=== PATIENT | male | born 1970 | race American Indian/Alaskan Native ===

== ENCOUNTER 2017-07-19 01:22 | Observation (INO) | payer SELFPAY ==
[2017-07-19] MEDS ORDERED: Sodium Chloride 0.9% 1,000 ML IV STA ×2 (01:58→04:42)
[2017-07-19 02:38] LABS: HEMOGLOBIN 13.6 g/dL (12.0-18.0); MEAN CELL VOLUME 96.2 fl (80.0-94.0); MEAN CORPUSCULAR HEMOGLOBIN 31.9 pg (27.0-31.0); MEAN CORPUSCULAR HGB CONC 33.2 g/dL (33.0-37.0); RBC 4.25 Mil/uL (4.40-5.90); RED CELL DISTRIBUTION WIDTH 14.9 % (11.5-14.5); WHITE BLOOD COUNT 9.5 K/uL (4.8-10.8)
--- NOTE | 2017-07-19 02:38 | ED PDOC ---
HPI: Abdomen Time Seen by Provider: 07/19/17 01:43 Chief Complaint (Nursing): Abdominal Pain Chief Complaint (Provider): Abdominal Pain History Per: Patient History/Exam Limitations: no limitations Onset/Duration Of Symptoms: Days (5 days ago) Current Symptoms Are (Timing): Still Present Additional Complaint(s): 47 yo male with no past medical history, presents to this ED complaining of nausea, vomiting, epigastric abdominal pain that radiates up to his throat, onset of 5 days ago. Patient reports, "It feels like i want to throw up my intestines", and he also states that he has been having trouble sleeping, and unable to eat a full meal because of this. He denies any alcohol or drug use. Past Medical History Reviewed: Historical Data, Nursing Documentation, Vital Signs Vital Signs: Last Vital Signs Temp 98.8 F 07/19/17 16:42 Pulse 82 07/19/17 16:42 Resp 20 07/19/17 16:42 BP 125/75 07/19/17 16:42 Pulse Ox 99 07/19/17 16:42 - Medical History PMH: Anxiety - Surgical History Surgical History: No Surg Hx - Family History Family History: States: Unknown Family Hx - Social History Current smoker - smoking cessation education provided: No Alcohol: None Drugs: Denies - Immunization History Hx Tetanus Toxoid Vaccination: No Hx Influenza Vaccination: No Hx Pneumococcal Vaccination: No - Home Medications Home Medications: Ambulatory Orders Medication Instructions Recorded No Known Home Med 07/19/17 - Allergies Allergies/Adverse Reactions: Allergies Allergy/AdvReac Type Severity Reaction Status Date / Time No Known Allergies Allergy Verified 12/08/16 08:37 Review of Systems ROS Statement: Except As Marked, All Systems Reviewed And Found Negative Constitutional: Positive for: Other (trouble eating and sleeping) ENT: Positive for: Throat Pain Gastrointestinal: Positive for: Nausea, Vomiting, Abdominal Pain (eppigastric) Physical Exam - Reviewed Nursing Documentation Reviewed: Yes Vital Signs Reviewed: Yes - Physical Exam Appears: Positive for: Well, Non-toxic, No Acute Distress Head Exam: Positive for: ATRAUMATIC, NORMAL INSPECTION, NORMOCEPHALIC Skin: Positive for: Normal Color, Warm, DRY Eye Exam: Positive for: EOMI, Normal appearance, PERRL ENT: Positive for: Normal ENT Inspection Neck: Positive for: Normal, Painless ROM Cardiovascular/Chest: Positive for: Regular Rate, Rhythm, Tachycardia. Negative for: Murmur Respiratory: Positive for: Normal Breath Sounds. Negative for: Respiratory Distress Gastrointestinal/Abdominal: Positive for: Soft, Tenderness (epigastric region). Negative for: Guarding, Rebound Back: Positive for: Normal Inspection Extremity: Positive for: Normal ROM. Negative for: Pedal Edema, Deformity Neurologic/Psych: Positive for: Alert, Oriented. Negative for: Motor/Sensory Deficits - Laboratory Results Result Diagrams: 07/19/17 02:18 07/19/17 15:41 - ECG O2 Sat by Pulse Oximetry: 97 (RA) Pulse Ox Interpretation: Normal Medical Decision Making Medical Decision Making: Time: --01:58 Impression: --patient with no past medical history presents with probable gastritis Plan: --labs --Drug Screen, urine -lipase --Liver profile --Pepcid 20mg IVP --IV Fluids --Zofran inj 4mg IVP - Reassess --02:25 patient is tachycardic probably because of dehydration. Will hydrate, check labs, give meds, and reevaluate. --0700 Patient is starting to feel better but CO2 is still significantly low. Will admit for IVF. Case discussed with Dr. Osborne who accepts admission, requesting CT A/P. Patient stable and improving upon admission. Scribe Attestation: Documented by Ihsan Jorgensen acting as a scribe for Fabian Mao MD. Provider Attestation: All medical record entries made by the Scribe were at my direction and personally dictated by me. I have reviewed the chart and agree that the record accurately reflects my personal performance of the history, physical exam, medical decision making, and the department course for this patient. I have also personally directed, reviewed, and agree with the discharge instructions and disposition. Disposition - Clinical Impression Clinical Impression: Nausea & vomiting, Hypocapnia - Disposition Disposition Time: 07:00 Condition: IMPROVED
[2017-07-19 02:46] LABS: ALB/GLOB RATIO 1.2 (1.0-2.1); ALBUMIN 5.1 g/dL (3.5-5.0); ALT/SGPT 72 U/L (21-72); AST/SGOT 134 U/L (17-59); BILIRUBIN,DIRECT 0.8 mg/ml (0.0-0.4); BLOOD UREA NITROGEN 9 mg/dl (9-20); CALCIUM 9.9 mg/dL (8.4-10.2); GFR AFRICAN-AMERICAN > 60; GFR NON-AFRICAN AMERICAN > 60; LIPASE 69 U/L (23-300)
[2017-07-19 05:03] LABS: BARBITURATES, UR NEGATIVE (NEGATIVE); BENZODIAZEPINES, UR NEGATIVE (NEGATIVE); OPIATES, UR NEGATIVE (NEGATIVE); PHENCYCLIDINE, UR NEGATIVE (NEGATIVE)
[2017-07-19 07:04] LABS: BLOOD UREA NITROGEN 8 mg/dl (9-20); GFR AFRICAN-AMERICAN > 60; GFR NON-AFRICAN AMERICAN > 60
[2017-07-19] MEDS ORDERED: Iohexol 240 (50 ml) PO ONE (07:22)
[2017-07-19] MEDS ORDERED: Iohexol 240 (50 ml) ONE (07:50)
[2017-07-19 08:16] LABS: VENOUS BLOOD GAS BASE EXCESS -9.2 mmol/L (0.0-2.0); VENOUS BLOOD GAS PCO2 29 mmHg (40-60); VENOUS BLOOD GAS PO2 46 mm/Hg (30-55); VENOUS BLOOD PH 7.33 (7.32-7.43)
--- NOTE | 2017-07-19 08:25 | CP.PCM.HP ---
History of Present Illness - History of Present Illness History of Present Illness: Chief Complaint : Nausea and Vomiting HPI: 47 y/o gent with no significant PMH except for receurent hx of N/V , came in bec of abdominal pain, [id number], N/V for the past 5-6 days. Patient states that for the past 10 years , he has been having recurrent history of abdominal pain and vomiting and he has had several ED visits because of this however he never had any GI work up. 6 days ago he had 3 drinks of Cognac and after this he started having abdominal pain - more epigastric radiating to the chest and throat. This was followed by several episodes of vomiting - about 6-7 x per day. He vomited everything that he ate and then followed by vomiting of watery fluid. he was unable to hold anything down for the past 6 days. he denies diarrhea, had no BM the past 4 days since he has been unable to eat anything. He also states that when he has the N/V episodes, his whole body is weak and he feels very dry. Present on Admission - Present on Admission Any Indicators Present on Admission: No Review of Systems - Review of Systems All systems: reviewed and no additional remarkable complaints except - Constitutional Constitutional: Weakness - EENT Eyes: absent: Blurred Vision, Change in Vision Ears: absent: Decreased Hearing, Ear Discharge Nose/Mouth/Throat: Dry Mouth. absent: Epistaxis, Nasal Congestion, Nasal Discharge - Cardiovascular Cardiovascular: absent: Chest Pain, Orthopnea, Palpitations, Paroxysmal Nocturnal Dyspnea - Respiratory Respiratory: absent: Cough, Dyspnea, Hemoptysis - Gastrointestinal Gastrointestinal: Abdominal Pain, Nausea, Vomiting - Genitourinary Genitourinary: absent: Change in Urinary Stream, Difficulty Urinating, Dysuria - Musculoskeletal Musculoskeletal: Muscle Weakness - Integumentary Integumentary: Dry Skin. absent: Rash, Sores - Neurological Neurological: Weakness. absent: Confusion, Focal Weakness - Psychiatric Psychiatric: absent: Anxiety, Confusion, Depression, Paranoia, Suicidal Ideation - Endocrine Endocrine: absent: Polydipsia, Polyphagia, Polyuria - Hematologic/Lymphatic Hematologic: absent: Easy Bleeding, Easy Bruising Past Patient History - Infectious Disease Hx of Infectious Diseases: None - Tetanus Immunizations Tetanus Immunization: Unknown - Past Medical History & Family History Past Medical History?: No Past Family History: Reviewed and not pertinent Pertinent Family History: Mother in her sleep at age 65y ??? Father is healthy - Past Social History Smoking Status: Never Smoked Chewing Tobacco Use: No Cigar Use: No Alcohol: Other (drinks 3 glasses of cognac 3x per week) Drugs: Denies Home Situation {Lives}: Alone Domestic Violence: Negative - CARDIAC Hx Cardiac Disorders: No - PULMONARY Hx Respiratory Disorders: No - NEUROLOGICAL Hx Neurological Disorder: No - HEENT Hx HEENT Problems: No - RENAL Hx Chronic Kidney Disease: No - ENDOCRINE/METABOLIC Hx Endocrine Disorders: No - HEMATOLOGICAL/ONCOLOGICAL Hx Blood Disorders: No Hx Blood Transfusions: No - INTEGUMENTARY Hx Dermatological Problems: No - MUSCULOSKELETAL/RHEUMATOLOGICAL Hx Musculoskeletal Disorders: No - GASTROINTESTINAL Hx Nausea: Yes Hx Vomiting: Yes Other/Comment: CT scan of chest done last yewar showed Esophagitis - GENITOURINARY/GYNECOLOGICAL Hx Genitourinary Disorders: No - PSYCHIATRIC Hx Anxiety: Yes Hx Substance Use: No - SURGICAL HISTORY Hx Surgeries: No - ANESTHESIA Hx Anesthesia: No Meds Allergies/Adverse Reactions: Allergies Allergy/AdvReac Type Severity Reaction Status Date / Time No Known Allergies Allergy Verified 12/08/16 08:37 Physical Exam - Constitutional Appears: No Acute Distress - Head Exam Head Exam: NORMAL INSPECTION, NORMOCEPHALIC - Eye Exam Eye Exam: EOMI, Normal appearance, PERRL Pupil Exam: NORMAL ACCOMODATION - ENT Exam ENT Exam: Mucous Membranes Dry, Normal External Ear Exam - Neck Exam Neck exam: Positive for: Full Rom. Negative for: Meningismus - Respiratory Exam Respiratory Exam: NORMAL BREATHING PATTERN. absent: Respiratory Distress - Cardiovascular Exam Cardiovascular Exam: REGULAR RHYTHM, +S1, +S2 - GI/Abdominal Exam GI & Abdominal Exam: Hernia (umbilical), Normal Bowel Sounds, Soft, Tenderness - Extremities Exam Extremities exam: Positive for: full ROM, normal capillary refill, pedal pulses present. Negative for: calf tenderness, pedal edema - Back Exam Back exam: FULL ROM. absent: CVA tenderness (L), CVA tenderness (R) - Neurological Exam Neurological exam: Alert, CN II-XII Intact, Oriented x3, Reflexes Normal - Psychiatric Exam Psychiatric exam: Normal Affect, Normal Mood - Skin Skin Exam: Dry, Normal Color, Warm Results - Vital Signs Recent Vital Signs: Last Vital Signs Temp 99.7 F H 07/19/17 07:38 Pulse 98 H 07/19/17 07:38 Resp 18 07/19/17 07:38 BP 131/67 07/19/17 07:38 Pulse Ox 99 07/19/17 07:38 - Labs Result Diagrams: 07/19/17 02:18 07/19/17 06:25 Labs: Laboratory Results - last 24 hr 07/19/17 07/19/17 07/19/17 02:18 02:18 04:41 WBC 9.5 RBC 4.25 L Hgb 13.6 Hct 40.9 MCV 96.2 H MCH 31.9 H MCHC 33.2 RDW 14.9 H Plt Count 342 pO2 VBG pH VBG pCO2 VBG HCO3 VBG Total CO2 VBG O2 Sat (Calc) VBG Base Excess VBG Potassium Glucose Lactate FiO2 Sodium 144 Potassium 5.7 H Chloride 98 Carbon Dioxide 9 L* Anion Gap 43 H BUN 9 Creatinine 1.2 Est GFR ( Amer) > 60 Est GFR (Non-Af Amer) > 60 Random Glucose 88 Calcium 9.9 Total Bilirubin 1.2 Direct Bilirubin 0.8 H AST 134 H ALT 72 Alkaline Phosphatase 115 Total Protein 9.2 H Albumin 5.1 H Globulin 4.1 H Albumin/Globulin Ratio 1.2 Lipase 69 Venous Blood Potassium Urine Opiates Screen Negative Urine Methadone Screen Negative Ur Barbiturates Screen Negative Ur Phencyclidine Scrn Negative Ur Amphetamines Screen Negative U Benzodiazepines Scrn Negative U Oth Cocaine Metabols Negative U Cannabinoids Screen Negative 07/19/17 07/19/17 06:25 08:11 WBC RBC Hgb Hct MCV MCH MCHC RDW Plt Count pO2 46 VBG pH 7.33 VBG pCO2 29 L VBG HCO3 17.2 VBG Total CO2 16.2 L VBG O2 Sat (Calc) 84.9 H VBG Base Excess -9.2 L VBG Potassium 4.9 Glucose 80 Lactate 1.6 FiO2 21.0 Sodium 142 135.0 Potassium 5.0 Chloride 105 103.0 Carbon Dioxide 11 L* D Anion Gap 31 H BUN 8 L Creatinine 1.0 Est GFR ( Amer) > 60 Est GFR (Non-Af Amer) > 60 Random Glucose 77 Calcium 8.0 L Total Bilirubin Direct Bilirubin AST ALT Alkaline Phosphatase Total Protein Albumin Globulin Albumin/Globulin Ratio Lipase Venous Blood Potassium 4.9 Urine Opiates Screen Urine Methadone Screen Ur Barbiturates Screen Ur Phencyclidine Scrn Ur Amphetamines Screen U Benzodiazepines Scrn U Oth Cocaine Metabols U Cannabinoids Screen - EKG Data EKG Interpreted by: Myself EKG shows normal: Sinus rhythm Rate: Tachycardia Assessment & Plan (1) Metabolic acidosis Status: Acute (2) Abdominal pain Status: Acute (3) Nausea & vomiting Status: Acute (4) Hyperkalemia Status: Acute (5) DVT prophylaxis Status: Acute - Assessment and Plan (Free Text) Assessment: 47 y/o gent with hx of recurrent abd pain , nausea and vomiting, came bec of 5- 6 days hx of vomiting and weakness. Found to be acidotic and with hyperkalemia. 1. Abd Pain, Nausea and Vomiting with Metabolic Acidosis - Pt has been having theses sxs on and off x [address] of chest done last year showed Esophagitis changes - will keep pt in the hospital for IVF hydration -start IVF NS bolus - start Sodium bicarb drip -start IV PPI - CT of the abd and Pelvis with contrast - pt would need EGD as outpt - counseled pt regarding need to d/c ETOH - check Salicylate, Acetaminophen level, Lactic acid 2. Hyperkalemia, resolved with hydration 3. DVT proph SCD, will start _Lovenox Decision To Admit - Pt Status Changed To: Hospital Disposition Of: Observation - . Bed Request Type: Telemetry Admitting Physician: July Osborne
[2017-07-19 08:26] LABS: ACETAMINOPHEN < 10.0 ug/ml (10.0-30.0); SALICYLATE < 1.0 mg/dl
[2017-07-19 09:00] LABS: SQUAMOUS EPITHIAL < 1 /hpf (0-5); URINE BILIRUBIN NEGATIVE (NEGATIVE); URINE BLOOD NEGATIVE (NEGATIVE); URINE CLARITY CLEAR (Clear); URINE COLOR YELLOW (YELLOW); URINE GLUCOSE (UA) NEG (Normal); URINE LEUKOCYTE ESTERASE NEG Leu/uL (Negative); URINE PROTEIN NEGATIVE (NEGATIVE); URINE UROBILINOGEN 0.2-1.0 mg/dL (0.2-1.0)
[2017-07-19] MEDS ORDERED: Sodium Chloride 0.9% 1,000 ML IV SCH (09:00)
[2017-07-19 09:12] LABS: ABG ALLEN TEST YES; ARTERIAL BLOOD GAS HCO3 18.4 mmol/L (21-28); ARTERIAL BLOOD GAS HEMOGLOBIN 11.6 g/dL (11.7-17.4); ARTERIAL BLOOD GAS O2 CAPACITY 15.7 mL/dL (16-24); ARTERIAL BLOOD GAS O2 CONTENT 15.8 ML/dL (15-23); ARTERIAL BLOOD GAS O2 SAT 100.4 % (95-98); ARTERIAL BLOOD GAS PCO2 27 mm/Hg (35-45); ARTERIAL BLOOD GAS PH 7.37 (7.35-7.45); ARTERIAL BLOOD GAS PO2 97 mm/Hg (80-100); ARTERIAL BLOOD GAS TCO2 16.4 mmol/L (22-28)
[2017-07-19] MEDS: [UNRECOGNIZED DRUG - OTHER] IV SCH ×2 (09:25→18:29)
[2017-07-19] MEDS: DEXTROSE IV SCH ×2 (09:25→18:29)
[2017-07-19] MEDS: SODIUM BICARBONATE IV SCH ×2 (09:25→18:29)
[2017-07-19] MEDS ORDERED: Iohexol 300 100 ML IJ ONE (13:12)
--- NOTE | 2017-07-19 14:35 | CT ---
PROCEDURE: CT Abdomen and Pelvis with contrast HISTORY: epig pain, vomiting COMPARISON: None. TECHNIQUE: Contrast dose: 95 cc Omnipaque 300 Radiation dose: Total exam DLP = 382.93 mGy-cm. This CT exam was performed using one or more of the following dose reduction techniques: Automated exposure control, adjustment of the mA and/or kV according to patient size, and/or use of iterative reconstruction technique. FINDINGS: LOWER THORAX: Unremarkable. LIVER: Normal size and contour. No mass. Diffusely diminished attenuation consistent with fatty infiltration. No biliary ductal dilatation. GALLBLADDER AND BILE DUCTS: Unremarkable. PANCREAS: No focal mass. Mild pancreatic ductal dilatation. Peripancreatic fluid/ edema consistent with acute pancreatitis. This fluid surrounds the 2nd and 3rd portions of the duodenum as well. The fluid extends to the level of the pancreatic tail. SPLEEN: Unremarkable. ADRENALS: Unremarkable. No mass. KIDNEYS AND URETERS: Unremarkable. No hydronephrosis. No solid mass. VASCULATURE: Unremarkable. No aortic aneurysm. BOWEL: Unremarkable. No obstruction. No gross mural thickening. APPENDIX: Normal appendix. PERITONEUM: Umbilical hernia containing 1 wall of a loop of sigmoid colon, a Doran hernia. Mesenteric fat is also herniated into this umbilical hernia. No bowel obstruction. No other abnormal bowel loops. LYMPH NODES: Unremarkable. No enlarged lymph nodes. BLADDER: Diffuse mural thickening. However, there is underdistention of the bladder and this may be artifactual. Please correlate with urinalysis for possible UTI. REPRODUCTIVE: Normal prostate BONES: No acute fracture. OTHER FINDINGS: None. IMPRESSION: Findings consistent with acute pancreatitis. Mild pancreatic ductal dilatation. No pancreatic mass. Umbilical Doran hernia noted. Fatty infiltration of the liver. Thickened bladder wall raising suspicion of cystitis. Please correlate.
--- NOTE | 2017-07-19 15:56 | CP.PCM.CON ---
<Dayana Mosley - Last Filed: 07/19/17 16:29> History of Present Illness - History of Present Illness History of Present Illness: GI Fellow PGY 4 Consult Note This is a 47 yM with no significant pmhx presenting for abdominal pain, N/V for the past 5-6 days. Pt reports that for the past few years he has been having recurrent abdominal pain similar to what he has now and multiple hospital admissions at different facilities but does not recall diagnosis of acute pancreatitis. No prior EGD or colonoscopy. His pain started Sunday after drinking 3 drinks of Cognac and after this he started having epigastric abdominal pain, sharp, radiating to the chest and throat and RUQ/back. This was followed by several episodes of vomiting about 6-7 x per day. He denies diarrhea, fevers, chills, rectal bleeding. ROS: A 12pt ROS was negative except as above PmHx: As stated in HPI PsHx: Denies SHx: positive etoh divine three times a week 3 drinks for many years, neg tobacco, opioid use FHx: no hx of colon cancer Past Patient History - Infectious Disease Hx of Infectious Diseases: None - Tetanus Immunizations Tetanus Immunization: Unknown - Past Medical History & Family History Past Medical History?: No Past Family History: Reviewed and not pertinent - Past Social History Smoking Status: Never Smoked Chewing Tobacco Use: No Cigar Use: No Alcohol: Other (drinks 3 glasses of cognac 3x per week) Drugs: Denies Home Situation {Lives}: Alone Domestic Violence: Negative - CARDIAC Hx Cardiac Disorders: No - PULMONARY Hx Respiratory Disorders: No - NEUROLOGICAL Hx Neurological Disorder: No - HEENT Hx HEENT Problems: No - RENAL Hx Chronic Kidney Disease: No - ENDOCRINE/METABOLIC Hx Endocrine Disorders: No - HEMATOLOGICAL/ONCOLOGICAL Hx Blood Disorders: No Hx Blood Transfusions: No - INTEGUMENTARY Hx Dermatological Problems: No - MUSCULOSKELETAL/RHEUMATOLOGICAL Hx Musculoskeletal Disorders: No - GASTROINTESTINAL Hx Nausea: Yes Hx Vomiting: Yes Other/Comment: CT scan of chest done last yewar showed Esophagitis - GENITOURINARY/GYNECOLOGICAL Hx Genitourinary Disorders: No - PSYCHIATRIC Hx Anxiety: Yes Hx Substance Use: No - SURGICAL HISTORY Hx Surgeries: No - ANESTHESIA Hx Anesthesia: No Meds Allergies/Adverse Reactions: Allergies Allergy/AdvReac Type Severity Reaction Status Date / Time No Known Allergies Allergy Verified 09/01/17 08:37 - Medications Medications: Current Medications Sodium Bicarbonate 50 meq/ (Dextrose/Sodium Chloride) 1,050 mls @ 125 mls/hr IV .Q8H24M [facility] Stop: 07/19/17 23:44 Last Admin: 07/19/17 09:25 Dose: 125 mls/hr Morphine Sulfate (Morphine) 2 mg IVP Q6 PRN PRN Reason: Pain, severe (8-10) Last Admin: 07/19/17 09:24 Dose: 2 mg Ondansetron HCl (Zofran Odt) 4 mg PO Q8H PRN PRN Reason: Nausea/Vomiting Pantoprazole Sodium (Protonix Inj) 40 mg IVP Q12 [facility] Physical Exam - Constitutional Appears: Non-toxic, No Acute Distress - Head Exam Head Exam: ATRAUMATIC, NORMAL INSPECTION, NORMOCEPHALIC - Eye Exam Eye Exam: EOMI, Normal appearance, PERRL Pupil Exam: PERRL - ENT Exam ENT Exam: Mucous Membranes Moist, Normal Exam - Neck Exam Neck exam: Positive for: Normal Inspection - Respiratory Exam Respiratory Exam: Clear to Auscultation Bilateral, NORMAL BREATHING PATTERN - Cardiovascular Exam Cardiovascular Exam: REGULAR RHYTHM, +S1, +S2 - GI/Abdominal Exam GI & Abdominal Exam: Normal Bowel Sounds, Soft, Tenderness. absent: Distended, Firm, Organomegaly, Rigid - Rectal Exam Rectal Exam: Deferred - Extremities Exam Extremities exam: Positive for: full ROM, normal inspection - Back Exam Back exam: NORMAL INSPECTION - Neurological Exam Neurological exam: Alert, Oriented x3 - Psychiatric Exam Psychiatric exam: Normal Affect, Normal Mood - Skin Skin Exam: Dry, Intact, Normal Color, Warm Results - Vital Signs Recent Vital Signs: Last Vital Signs Temp 99.7 F H 07/19/17 09:16 Pulse 87 07/19/17 09:36 Resp 20 07/19/17 10:11 BP 123/78 07/19/17 09:36 Pulse Ox 99 07/19/17 09:36 - Labs Result Diagrams: 07/19/17 02:18 07/19/17 06:25 Labs: Laboratory Results - last 24 hr 07/19/17 07/19/17 07/19/17 02:18 02:18 04:41 WBC 9.5 RBC 4.25 L Hgb 13.6 Hct 40.9 MCV 96.2 H MCH 31.9 H MCHC 33.2 RDW 14.9 H Plt Count 342 pCO2 pO2 HCO3 ABG pH ABG Total CO2 ABG O2 Saturation ABG O2 Content ABG Base Excess ABG Hemoglobin ABG Carboxyhemoglobin POC ABG HHb (Measured) ABG Methemoglobin ABG O2 Capacity Rajendra Test VBG pH VBG pCO2 VBG HCO3 VBG Total CO2 VBG O2 Sat (Calc) VBG Base Excess VBG Potassium A-a O2 Difference Hgb O2 Saturation Glucose Lactate FiO2 Sodium 144 Potassium 5.7 H Chloride 98 Carbon Dioxide 9 L* Anion Gap 43 H BUN 9 Creatinine 1.2 Est GFR ( Amer) > 60 Est GFR (Non-Af Amer) > 60 Random Glucose 88 Lactic Acid Calcium 9.9 Total Bilirubin 1.2 Direct Bilirubin 0.8 H AST 134 H ALT 72 Alkaline Phosphatase 115 Total Protein 9.2 H Albumin 5.1 H Globulin 4.1 H Albumin/Globulin Ratio 1.2 Lipase 69 Venous Blood Potassium Urine Color Urine Clarity Urine pH Ur Specific [place] Urine Protein Urine Glucose (UA) Urine Ketones Urine Blood Urine Nitrate Urine Bilirubin Urine Urobilinogen Ur Leukocyte Esterase Urine RBC (Auto) Urine Microscopic WBC Ur Squamous Epith Cells Salicylates Urine Opiates Screen Negative Urine Methadone Screen Negative Acetaminophen Ur Barbiturates Screen Negative Ur Phencyclidine Scrn Negative Ur Amphetamines Screen Negative U Benzodiazepines Scrn Negative U Oth Cocaine Metabols Negative U Cannabinoids Screen Negative 07/19/17 07/19/17 07/19/17 06:25 08:01 08:01 WBC RBC Hgb Hct MCV MCH MCHC RDW Plt Count pCO2 pO2 HCO3 ABG pH ABG Total CO2 ABG O2 Saturation ABG O2 Content ABG Base Excess ABG Hemoglobin ABG Carboxyhemoglobin POC ABG HHb (Measured) ABG Methemoglobin ABG O2 Capacity Rajendra Test VBG pH VBG pCO2 VBG HCO3 VBG Total CO2 VBG O2 Sat (Calc) VBG Base Excess VBG Potassium A-a O2 Difference Hgb O2 Saturation Glucose Lactate FiO2 Sodium 142 Potassium 5.0 Chloride 105 Carbon Dioxide 11 L* D Anion Gap 31 H BUN 8 L Creatinine 1.0 Est GFR ( Amer) > 60 Est GFR (Non-Af Amer) > 60 Random Glucose 77 Lactic Acid 1.3 Calcium 8.0 L Total Bilirubin Direct Bilirubin AST ALT Alkaline Phosphatase Total Protein Albumin Globulin Albumin/Globulin Ratio Lipase Venous Blood Potassium Urine Color Urine Clarity Urine pH Ur Specific [place] Urine Protein Urine Glucose (UA) Urine Ketones Urine Blood Urine Nitrate Urine Bilirubin Urine Urobilinogen Ur Leukocyte Esterase Urine RBC (Auto) Urine Microscopic WBC Ur Squamous Epith Cells Salicylates < 1.0 Urine Opiates Screen Urine Methadone Screen Acetaminophen < 10.0 L Ur Barbiturates Screen Ur Phencyclidine Scrn Ur Amphetamines Screen U Benzodiazepines Scrn U Oth Cocaine Metabols U Cannabinoids Screen 07/19/17 07/19/17 07/19/17 08:11 08:35 08:52 WBC RBC Hgb Hct MCV MCH MCHC RDW Plt Count pCO2 27 L pO2 46 97 HCO3 18.4 L ABG pH 7.37 ABG Total CO2 16.4 L ABG O2 Saturation 100.4 H ABG O2 Content 15.8 ABG Base Excess -8.3 L ABG Hemoglobin 11.6 L ABG Carboxyhemoglobin 2.2 H POC ABG HHb (Measured) -0.4 L ABG Methemoglobin 1.9 ABG O2 Capacity 15.7 L Rajendra Test Yes VBG pH 7.33 VBG pCO2 29 L VBG HCO3 17.2 VBG Total CO2 16.2 L VBG O2 Sat (Calc) 84.9 H VBG Base Excess -9.2 L VBG Potassium 4.9 A-a O2 Difference 19.0 Hgb O2 Saturation 96.4 Glucose 80 Lactate 1.6 FiO2 21.0 21.0 Sodium 135.0 Potassium Chloride 103.0 Carbon Dioxide Anion Gap BUN Creatinine Est GFR ( Amer) Est GFR (Non-Af Amer) Random Glucose Lactic Acid Calcium Total Bilirubin Direct Bilirubin AST ALT Alkaline Phosphatase Total Protein Albumin Globulin Albumin/Globulin Ratio Lipase Venous Blood Potassium 4.9 Urine Color Yellow Urine Clarity Clear Urine pH 5.0 Ur Specific [place] 1.016 Urine Protein Negative Urine Glucose (UA) Neg Urine Ketones 80 Urine Blood Negative Urine Nitrate Negative Urine Bilirubin Negative Urine Urobilinogen 0.2-1.0 Ur Leukocyte Esterase Neg Urine RBC (Auto) 1 Urine Microscopic WBC < 1 Ur Squamous Epith Cells < 1 Salicylates Urine Opiates Screen Urine Methadone Screen Acetaminophen Ur Barbiturates Screen Ur Phencyclidine Scrn Ur Amphetamines Screen U Benzodiazepines Scrn U Oth Cocaine Metabols U Cannabinoids Screen Assessment & Plan - Assessment and Plan (Free Text) Assessment: This is a 47yM presenting with complaints of epigastric abdominal pain. 1. Acute pancreatitis likely alcohol induced Plan: -Continue supportive care with pain control and anti-emetics -Pt with abdominal pain consistent with pancreatitis and CT imaging reviewed with peripancreatic edema and fat stranding, lipase is not elevated 3xupper limit of normal -Acute pancreatits from alcohol abuse and chronic alcohol use -Abdominal US ordered to r/o gallstones -Will check triglycerides levels -No indication to trend lipase levels -Monitor CBC and CMP to trend BUN/HCT -Recommend Aggressive IVF hydration with LR@250cc/hr -NPO, if pain improves can start diet tomorrow -Alcohol cessation counseling provided to pt in setting of acute pancreatitis -No plan for endoscopic evaluation at this time, will need outpt follow up -Will continue to follow closely <Adrián Dougherty - Last Filed: 07/19/17 20:47> Meds - Medications Medications: Current Medications Lactated Ringer's (Lactated Ringer's) 1,000 mls @ 250 mls/hr IV .Q4H [facility] Morphine Sulfate (Morphine) 2 mg IVP Q6 PRN PRN Reason: Pain, severe (8-10) Last Admin: 07/19/17 15:55 Dose: 2 mg Ondansetron HCl (Zofran Odt) 4 mg PO Q8H PRN PRN Reason: Nausea/Vomiting Pantoprazole Sodium (Protonix Inj) 40 mg IVP Q12 [facility] Results - Vital Signs Recent Vital Signs: Last Vital Signs Temp 98.8 F 07/19/17 16:42 Pulse 82 07/19/17 16:42 Resp 20 07/19/17 16:42 BP 125/75 07/19/17 16:42 Pulse Ox 99 07/19/17 16:42 - Labs Result Diagrams: 07/19/17 02:18 07/19/17 15:41 Labs: Laboratory Results - last 24 hr 07/19/17 07/19/17 07/19/17 02:18 02:18 04:41 WBC 9.5 RBC 4.25 L Hgb 13.6 Hct 40.9 MCV 96.2 H MCH 31.9 H MCHC 33.2 RDW 14.9 H Plt Count 342 pCO2 pO2 HCO3 ABG pH ABG Total CO2 ABG O2 Saturation ABG O2 Content ABG Base Excess ABG Hemoglobin ABG Carboxyhemoglobin POC ABG HHb (Measured) ABG Methemoglobin ABG O2 Capacity Rajendra Test VBG pH VBG pCO2 VBG HCO3 VBG Total CO2 VBG O2 Sat (Calc) VBG Base Excess VBG Potassium A-a O2 Difference Hgb O2 Saturation Glucose Lactate FiO2 Sodium 144 Potassium 5.7 H Chloride 98 Carbon Dioxide 9 L* Anion Gap 43 H BUN 9 Creatinine 1.2 Est GFR ( Amer) > 60 Est GFR (Non-Af Amer) > 60 Random Glucose 88 Lactic Acid Calcium 9.9 Total Bilirubin 1.2 Direct Bilirubin 0.8 H AST 134 H ALT 72 Alkaline Phosphatase 115 Total Protein 9.2 H Albumin 5.1 H Globulin 4.1 H Albumin/Globulin Ratio 1.2 Lipase 69 Venous Blood Potassium Urine Color Urine Clarity Urine pH Ur Specific [place] Urine Protein Urine Glucose (UA) Urine Ketones Urine Blood Urine Nitrate Urine Bilirubin Urine Urobilinogen Ur Leukocyte Esterase Urine RBC (Auto) Urine Microscopic WBC Ur Squamous Epith Cells Salicylates Urine Opiates Screen Negative Urine Methadone Screen Negative Acetaminophen Ur Barbiturates Screen Negative Ur Phencyclidine Scrn Negative Ur Amphetamines Screen Negative U Benzodiazepines Scrn Negative U Oth Cocaine Metabols Negative U Cannabinoids Screen Negative 07/19/17 07/19/17 07/19/17 06:25 08:01 08:01 WBC RBC Hgb Hct MCV MCH MCHC RDW Plt Count pCO2 pO2 HCO3 ABG pH ABG Total CO2 ABG O2 Saturation ABG O2 Content ABG Base Excess ABG Hemoglobin ABG Carboxyhemoglobin POC ABG HHb (Measured) ABG Methemoglobin ABG O2 Capacity Rajendra Test VBG pH VBG pCO2 VBG HCO3 VBG Total CO2 VBG O2 Sat (Calc) VBG Base Excess VBG Potassium A-a O2 Difference Hgb O2 Saturation Glucose Lactate FiO2 Sodium 142 Potassium 5.0 Chloride 105 Carbon Dioxide 11 L* D Anion Gap 31 H BUN 8 L Creatinine 1.0 Est GFR ( Amer) > 60 Est GFR (Non-Af Amer) > 60 Random Glucose 77 Lactic Acid 1.3 Calcium 8.0 L Total Bilirubin Direct Bilirubin AST ALT Alkaline Phosphatase Total Protein Albumin Globulin Albumin/Globulin Ratio Lipase Venous Blood Potassium Urine Color Urine Clarity Urine pH Ur Specific [place] Urine Protein Urine Glucose (UA) Urine Ketones Urine Blood Urine Nitrate Urine Bilirubin Urine Urobilinogen Ur Leukocyte Esterase Urine RBC (Auto) Urine Microscopic WBC Ur Squamous Epith Cells Salicylates < 1.0 Urine Opiates Screen Urine Methadone Screen Acetaminophen < 10.0 L Ur Barbiturates Screen Ur Phencyclidine Scrn Ur Amphetamines Screen U Benzodiazepines Scrn U Oth Cocaine Metabols U Cannabinoids Screen 07/19/17 07/19/17 07/19/17 08:11 08:35 08:52 WBC RBC Hgb Hct MCV MCH MCHC RDW Plt Count pCO2 27 L pO2 46 97 HCO3 18.4 L ABG pH 7.37 ABG Total CO2 16.4 L ABG O2 Saturation 100.4 H ABG O2 Content 15.8 ABG Base Excess -8.3 L ABG Hemoglobin 11.6 L ABG Carboxyhemoglobin 2.2 H POC ABG HHb (Measured) -0.4 L ABG Methemoglobin 1.9 ABG O2 Capacity 15.7 L Rajendra Test Yes VBG pH 7.33 VBG pCO2 29 L VBG HCO3 17.2 VBG Total CO2 16.2 L VBG O2 Sat (Calc) 84.9 H VBG Base Excess -9.2 L VBG Potassium 4.9 A-a O2 Difference 19.0 Hgb O2 Saturation 96.4 Glucose 80 Lactate 1.6 FiO2 21.0 21.0 Sodium 135.0 Potassium Chloride 103.0 Carbon Dioxide Anion Gap BUN Creatinine Est GFR ( Amer) Est GFR (Non-Af Amer) Random Glucose Lactic Acid Calcium Total Bilirubin Direct Bilirubin AST ALT Alkaline Phosphatase Total Protein Albumin Globulin Albumin/Globulin Ratio Lipase Venous Blood Potassium 4.9 Urine Color Yellow Urine Clarity Clear Urine pH 5.0 Ur Specific [place] 1.016 Urine Protein Negative Urine Glucose (UA) Neg Urine Ketones 80 Urine Blood Negative Urine Nitrate Negative Urine Bilirubin Negative Urine Urobilinogen 0.2-1.0 Ur Leukocyte Esterase Neg Urine RBC (Auto) 1 Urine Microscopic WBC < 1 Ur Squamous Epith Cells < 1 Salicylates Urine Opiates Screen Urine Methadone Screen Acetaminophen Ur Barbiturates Screen Ur Phencyclidine Scrn Ur Amphetamines Screen U Benzodiazepines Scrn U Oth Cocaine Metabols U Cannabinoids Screen 07/19/17 15:41 WBC RBC Hgb Hct MCV MCH MCHC RDW Plt Count pCO2 pO2 HCO3 ABG pH ABG Total CO2 ABG O2 Saturation ABG O2 Content ABG Base Excess ABG Hemoglobin ABG Carboxyhemoglobin POC ABG HHb (Measured) ABG Methemoglobin ABG O2 Capacity Rajendra Test VBG pH VBG pCO2 VBG HCO3 VBG Total CO2 VBG O2 Sat (Calc) VBG Base Excess VBG Potassium A-a O2 Difference Hgb O2 Saturation Glucose Lactate FiO2 Sodium 141 Potassium 4.0 Chloride 98 Carbon Dioxide 23 Anion Gap 24 H BUN 7 L Creatinine 1.0 Est GFR ( Amer) > 60 Est GFR (Non-Af Amer) > 60 Random Glucose 108 Lactic Acid Calcium 8.6 Total Bilirubin 1.5 H Direct Bilirubin AST 118 H ALT 63 Alkaline Phosphatase 86 Total Protein 7.8 Albumin 4.2 Globulin 3.6 Albumin/Globulin Ratio 1.2 Lipase Venous Blood Potassium Urine Color Urine Clarity Urine pH Ur Specific [place] Urine Protein Urine Glucose (UA) Urine Ketones Urine Blood Urine Nitrate Urine Bilirubin Urine Urobilinogen Ur Leukocyte Esterase Urine RBC (Auto) Urine Microscopic WBC Ur Squamous Epith Cells Salicylates Urine Opiates Screen Urine Methadone Screen Acetaminophen Ur Barbiturates Screen Ur Phencyclidine Scrn Ur Amphetamines Screen U Benzodiazepines Scrn U Oth Cocaine Metabols U Cannabinoids Screen Assessment & Plan - Assessment and Plan (Free Text) Plan: Patient seen and evaluated by me and discussed with fellow. Agree with above plan.
[2017-07-19] MEDS ORDERED: Lactated Ringer's 1,000 ML IV SCH (17:15)
[2017-07-19 17:42] LABS: ALB/GLOB RATIO 1.2 (1.0-2.1); ALBUMIN 4.2 g/dL (3.5-5.0); ALT/SGPT 63 U/L (21-72); AST/SGOT 118 U/L (17-59); BLOOD UREA NITROGEN 7 mg/dl (9-20); CALCIUM 8.6 mg/dL (8.4-10.2); GFR AFRICAN-AMERICAN > 60; GFR NON-AFRICAN AMERICAN > 60
--- NOTE | 2017-07-19 21:43 | US ---
EXAM: US Abdomen Complete CLINICAL HISTORY: 47 years old, male; Signs and symptoms; Vomiting; Additional info: R/O gallstones TECHNIQUE: Real-time ultrasound of the abdomen (complete) with image documentation. COMPARISON: No relevant prior studies available. FINDINGS: Liver: Measuring approximately 18 cm. Increased echogenicity. Gallbladder: No acute abnormality as visualized. No gallstones. Common bile duct: No dilation. Pancreas: Pancreatic duct visualized. Kidneys: No acute abnormality as visualized. Measured at 10.8 cm bilaterally. No hydronephrosis. Spleen: No acute abnormality as visualized. acute abnormality as visualized. Limited evaluation. IMPRESSION: No evidence of cholelithiasis/cholecystitis. Liver is slightly prominent in size with increased echogenicity likely secondary to fatty infiltration. Please note acute pancreatitis noted on CT is not clearly appreciated on ultrasound.
[2017-07-19] MEDS: Lactated Ringer's 1,000 ML IV SCH ×2 (22:43→23:22)
[2017-07-20] MEDS: Lactated Ringer's 1,000 ML IV SCH ×6 (02:35→17:34)
[2017-07-20 06:54] LABS: BASO % 0.3 % (0.0-2.0); EOS # 0.1 K/uL (0.0-0.7); EOS % 1.2 % (0.0-4.0); HEMOGLOBIN 12.8 g/dL (12.0-18.0); LYMPH # 1.2 K/uL (1.0-4.3); LYMPH % 23.1 % (20.0-40.0); MEAN CELL VOLUME 95.4 fl (80.0-94.0); MEAN CORPUSCULAR HEMOGLOBIN 31.3 pg (27.0-31.0); MEAN CORPUSCULAR HGB CONC 32.8 g/dL (33.0-37.0); MEAN PLATELET VOLUME 7.2 fl (7.2-11.7); MONO # 0.2 K/uL (0.0-0.8); MONO % 4.8 % (0.0-10.0); NEUT # 3.6 K/uL (1.8-7.0); NEUT % 70.6 % (50.0-75.0); NRBC % 0.2 % (0.0-0.0); RBC 4.08 Mil/uL (4.40-5.90); RED CELL DISTRIBUTION WIDTH 14.3 % (11.5-14.5); WHITE BLOOD COUNT 5.1 K/uL (4.8-10.8)
[2017-07-20 07:15] LABS: LDL CHOLESTEROL 139 mg/dL (0-129)
[2017-07-20 07:28] LABS: ALB/GLOB RATIO 1.1 (1.0-2.1); ALBUMIN 3.8 g/dL (3.5-5.0); ALT/SGPT 57 U/L (21-72); AMYLASE 425 U/L (30-110); AST/SGOT 116 U/L (17-59); BLOOD UREA NITROGEN 5 mg/dl (9-20); CALCIUM 8.9 mg/dL (8.4-10.2); GFR AFRICAN-AMERICAN > 60; GFR NON-AFRICAN AMERICAN > 60; HDL CHOLESTEROL 74 MG/DL (30-70)
[2017-07-20 08:02] VITALS: O2SAT 98
--- NOTE | 2017-07-20 10:06 | CP.PCM.PN ---
<Dayana Mosley - Last Filed: 07/20/17 10:03> Subjective - Date & Time of Evaluation Date of Evaluation: 07/20/17 Time of Evaluation: 08:00 - Subjective Subjective: GI Fellow PGY4 Progress Note Pt seen and evaluated at bedside, abdominal pain is a little better since admission. Pt willing to try clear liquids. No fevers, chills, nausea or vomiting. ROS: A 12pt ROS was negative except as above. Objective - Vital Signs/Intake and Output Vital Signs (last 24 hours): Temp Pulse Resp BP Pulse Ox 98.9 F 73 19 135/85 98 07/20/17 08:01 07/20/17 08:01 07/20/17 08:01 07/20/17 08:01 07/20/17 08:01 - Medications Medications: Current Medications Lactated Ringer's (Lactated Ringer's) 1,000 mls @ 250 mls/hr IV .Q4H [facility] Last Admin: 07/20/17 06:35 Dose: Not Given Morphine Sulfate (Morphine) 2 mg IVP Q6 PRN PRN Reason: Pain, severe (8-10) Last Admin: 07/19/17 15:55 Dose: 2 mg Ondansetron HCl (Zofran Odt) 4 mg PO Q8H PRN PRN Reason: Nausea/Vomiting Pantoprazole Sodium (Protonix Inj) 40 mg IVP Q12 [facility] Last Admin: 07/20/17 08:54 Dose: 40 mg - Labs Labs: 07/20/17 06:18 07/20/17 06:18 - Constitutional Appears: Non-toxic, No Acute Distress - Head Exam Head Exam: ATRAUMATIC, NORMAL INSPECTION, NORMOCEPHALIC - Eye Exam Eye Exam: EOMI, Normal appearance, PERRL Pupil Exam: PERRL - ENT Exam ENT Exam: Mucous Membranes Moist - Neck Exam Neck Exam: Full ROM - Respiratory Exam Respiratory Exam: Clear to Ausculation Bilateral, NORMAL BREATHING PATTERN - Cardiovascular Exam Cardiovascular Exam: REGULAR RHYTHM, RRR, +S1, +S2 - GI/Abdominal Exam GI & Abdominal Exam: Soft, Tenderness, Normal Bowel Sounds. absent: Distended, Firm, Guarding, Organomegaly - Rectal Exam Rectal Exam: Deferred - Extremities Exam Extremities Exam: Full ROM, Normal Inspection - Back Exam Back Exam: NORMAL INSPECTION - Neurological Exam Neurological Exam: Alert, Awake, Oriented x3 - Psychiatric Exam Psychiatric exam: Normal Affect, Normal Mood - Skin Skin Exam: Dry, Intact, Normal Color, Warm Assessment and Plan - Assessment and Plan (Free Text) Assessment: This is a 47yM presenting with complaints of epigastric abdominal pain. 1. Acute pancreatitis likely alcohol induced Plan: -Continue supportive care with pain control and anti-emetics -Pt with abdominal pain consistent with pancreatitis and CT imaging reviewed with peripancreatic edema and fat stranding, lipase is not elevated 3xupper limit of normal -Acute pancreatits from alcohol abuse and chronic alcohol use -Abdominal US negative for gallstones -Triglycerides levels wnl -No indication to trend lipase levels -Monitor CBC and CMP to trend BUN/HCT -Continue IVF hydration with LR@200cc/hr -Advance to clear liquid diet, advance as tolerated to low fat diet -Alcohol cessation counseling provided to pt in setting of acute pancreatitis -No plan for endoscopic evaluation at this time, will need outpt follow up -Will continue to follow closely <Adrián Dougherty - Last Filed: 07/20/17 14:46> Objective - Vital Signs/Intake and Output Vital Signs (last 24 hours): Temp Pulse Resp BP Pulse Ox 98.9 F 73 19 135/85 98 07/20/17 08:01 07/20/17 08:01 07/20/17 08:01 07/20/17 08:01 07/20/17 08:01 - Medications Medications: Current Medications Lactated Ringer's (Lactated Ringer's) 1,000 mls @ 250 mls/hr IV .Q4H [facility] Last Admin: 07/20/17 10:31 Dose: 250 mls/hr Morphine Sulfate (Morphine) 2 mg IVP Q6 PRN PRN Reason: Pain, severe (8-10) Last Admin: 07/19/17 15:55 Dose: 2 mg Ondansetron HCl (Zofran Odt) 4 mg PO Q8H PRN PRN Reason: Nausea/Vomiting Pantoprazole Sodium (Protonix Inj) 40 mg IVP Q12 [facility] Last Admin: 07/20/17 08:54 Dose: 40 mg - Labs Labs: 07/20/17 06:18 07/20/17 06:18 Assessment and Plan - Assessment and Plan (Free Text) Plan: Agree with above.If patient continues to improve may start small amounts low fat solids
[2017-07-20 16:37] VITALS: BP 115/71; PULSE 86; RESP 18; TEMP 99
--- NOTE | 2017-07-20 19:01 | CP.PCM.DIS ---
Provider - Provider Date of Admission: 07/19/17 07:22 Attending physician: July Osborne MD Consults: GI : DR Dougherty Time Spent in preparation of Discharge (in minutes): 40 Diagnosis - Discharge Diagnosis (1) Acute alcoholic pancreatitis Status: Acute (2) Metabolic acidosis Status: Acute (3) Abdominal pain Status: Acute (4) Nausea & vomiting Status: Acute (5) Hyperkalemia Status: Acute (6) DVT prophylaxis Status: Acute Hospital Course - Lab Results Lab Results: Most Recent Lab Values WBC 5.1 K/uL (4.8-10.8) 07/20/17 06:18 RBC 4.08 Mil/uL (4.40-5.90) L 07/20/17 06:18 Hgb 12.8 g/dL (12.0-18.0) 07/20/17 06:18 Hct 39.0 % (35.0-51.0) 07/20/17 06:18 MCV 95.4 fl (80.0-94.0) H 07/20/17 06:18 MCH 31.3 pg (27.0-31.0) H 07/20/17 06:18 MCHC 32.8 g/dL (33.0-37.0) L 07/20/17 06:18 RDW 14.3 % (11.5-14.5) 07/20/17 06:18 Plt Count 232 K/uL (130-400) D 07/20/17 06:18 MPV 7.2 fl (7.2-11.7) 07/20/17 06:18 Neut % (Auto) 70.6 % (50.0-75.0) 07/20/17 06:18 Lymph % (Auto) 23.1 % (20.0-40.0) 07/20/17 06:18 [place] % (Auto) 4.8 % (0.0-10.0) 07/20/17 06:18 Eos % (Auto) 1.2 % (0.0-4.0) 07/20/17 06:18 Baso % (Auto) 0.3 % (0.0-2.0) 07/20/17 06:18 Neut # (Auto) 3.6 K/uL (1.8-7.0) 07/20/17 06:18 Lymph # (Auto) 1.2 K/uL (1.0-4.3) 07/20/17 06:18 [place] # (Auto) 0.2 K/uL (0.0-0.8) 07/20/17 06:18 Eos # (Auto) 0.1 K/uL (0.0-0.7) 07/20/17 06:18 Baso # (Auto) 0.0 K/uL (0.0-0.2) 07/20/17 06:18 pCO2 27 mm/Hg (35-45) L 07/19/17 08:52 pO2 97 mm/Hg (80-100) 07/19/17 08:52 HCO3 18.4 mmol/L (21-28) L 07/19/17 08:52 ABG pH 7.37 (7.35-7.45) 07/19/17 08:52 ABG Total CO2 16.4 mmol/L (22-28) L 07/19/17 08:52 ABG O2 Saturation 100.4 % (95-98) H 07/19/17 08:52 ABG O2 Content 15.8 ML/dL (15-23) 07/19/17 08:52 ABG Base Excess -8.3 mmol/L (-2.0-3.0) L 07/19/17 08:52 ABG Hemoglobin 11.6 g/dL (11.7-17.4) L 07/19/17 08:52 ABG Carboxyhemoglobin 2.2 % (0.5-1.5) H 07/19/17 08:52 POC ABG HHb (Measured) -0.4 % (0.0-5.0) L 07/19/17 08:52 ABG Methemoglobin 1.9 % (0.0-3.0) 07/19/17 08:52 ABG O2 Capacity 15.7 mL/dL (16-24) L 07/19/17 08:52 Rajendra Test Yes 07/19/17 08:52 VBG pH 7.33 (7.32-7.43) 07/19/17 08:11 VBG pCO2 29 mmHg (40-60) L 07/19/17 08:11 VBG HCO3 17.2 mmol/L 07/19/17 08:11 VBG Total CO2 16.2 mmol/L (22-28) L 07/19/17 08:11 VBG O2 Sat (Calc) 84.9 % (40-65) H 07/19/17 08:11 VBG Base Excess -9.2 mmol/L (0.0-2.0) L 07/19/17 08:11 VBG Potassium 4.9 mmol/L (3.6-5.2) 07/19/17 08:11 A-a O2 Difference 19.0 mm/Hg 07/19/17 08:52 Hgb O2 Saturation 96.4 % (95.0-98.0) 07/19/17 08:52 Sodium 135.0 mmol/L (132-148) 07/19/17 08:11 Chloride 103.0 mmol/L (98-107) 07/19/17 08:11 Glucose 80 mg/dL (75-110) 07/19/17 08:11 Lactate 1.6 mmol/L (0.7-2.1) 07/19/17 08:11 FiO2 21.0 % 07/19/17 08:52 Sodium 138 mmol/l (132-148) 07/20/17 06:18 Potassium 3.8 MMOL/L (3.6-5.0) 07/20/17 06:18 Chloride 97 mmol/L (98-107) L 07/20/17 06:18 Carbon Dioxide 24 mmol/L (22-30) 07/20/17 06:18 Anion Gap 21 (10-20) H 07/20/17 06:18 BUN 5 mg/dl (9-20) L 07/20/17 06:18 Creatinine 0.9 mg/dl (0.8-1.5) 07/20/17 06:18 Est GFR ( Amer) > 60 07/20/17 06:18 Est GFR (Non-Af Amer) > 60 07/20/17 06:18 Random Glucose 86 mg/dL (75-110) 07/20/17 06:18 Lactic Acid 1.3 MMOL/L (0.7-2.1) 07/19/17 08:01 Calcium 8.9 mg/dL (8.4-10.2) 07/20/17 06:18 Total Bilirubin 1.3 mg/dl (0.2-1.3) 07/20/17 06:18 Direct Bilirubin 0.8 mg/ml (0.0-0.4) H 07/19/17 02:18 AST 116 U/L (17-59) H 07/20/17 06:18 ALT 57 U/L (21-72) 07/20/17 06:18 Alkaline Phosphatase 79 U/L (38-126) 07/20/17 06:18 Total Protein 7.2 G/DL (6.3-8.2) 07/20/17 06:18 Albumin 3.8 g/dL (3.5-5.0) 07/20/17 06:18 Globulin 3.4 gm/dL (2.2-3.9) 07/20/17 06:18 Albumin/Globulin Ratio 1.1 (1.0-2.1) 07/20/17 06:18 Triglycerides 89 mg/DL (0-149) 07/20/17 06:18 Cholesterol 245 mg/dL (0-199) H 07/20/17 06:18 LDL Cholesterol Direct 139 mg/dL (0-129) H 07/20/17 06:18 HDL Cholesterol 74 MG/DL (30-70) H 07/20/17 06:18 Amylase 425 U/L (30-110) H 07/20/17 06:18 Lipase 69 U/L (23-300) 07/19/17 02:18 Venous Blood Potassium 4.9 mmol/L (3.6-5.2) 07/19/17 08:11 Urine Color Yellow (YELLOW) 07/19/17 08:35 Urine Clarity Clear (Clear) 07/19/17 08:35 Urine pH 5.0 (5.0-8.0) 07/19/17 08:35 Ur Specific [place] 1.016 (1.003-1.030) 07/19/17 08:35 Urine Protein Negative mg/dL (NEGATIVE) 07/19/17 08:35 Urine Glucose (UA) Neg mg/dL (Normal) 07/19/17 08:35 Urine Ketones 80 mg/dL (NEGATIVE) 07/19/17 08:35 Urine Blood Negative (NEGATIVE) 07/19/17 08:35 Urine Nitrate Negative (NEGATIVE) 07/19/17 08:35 Urine Bilirubin Negative (NEGATIVE) 07/19/17 08:35 Urine Urobilinogen 0.2-1.0 mg/dL (0.2-1.0) 07/19/17 08:35 Ur Leukocyte Esterase Neg Papo/uL (Negative) 07/19/17 08:35 Urine RBC (Auto) 1 /hpf (0-3) 07/19/17 08:35 Urine Microscopic WBC < 1 /hpf (0-5) 07/19/17 08:35 Ur Squamous Epith Cells < 1 /hpf (0-5) 07/19/17 08:35 Salicylates < 1.0 mg/dl 07/19/17 08:01 Urine Opiates Screen Negative (NEGATIVE) 07/19/17 04:41 Urine Methadone Screen Negative (NEGATIVE) 07/19/17 04:41 Acetaminophen < 10.0 ug/ml (10.0-30.0) L 07/19/17 08:01 Ur Barbiturates Screen Negative (NEGATIVE) 07/19/17 04:41 Ur Phencyclidine Scrn Negative (NEGATIVE) 07/19/17 04:41 Ur Amphetamines Screen Negative (NEGATIVE) 07/19/17 04:41 U Benzodiazepines Scrn Negative (NEGATIVE) 07/19/17 04:41 U Oth Cocaine Metabols Negative (NEGATIVE) 07/19/17 04:41 U Cannabinoids Screen Negative (NEGATIVE) 07/19/17 04:41 - Hospital Course Hospital Course: 47 y/o gent with hx of recurrent abd pain , nausea and vomiting, came bec of 5- 6 days hx of abd pain with vomiting and weakness. Found to be acidotic and with hyperkalemia. Pt drinks ETOH 3 glasses of Cognac per day 3 times per week. 1. Abd Pain, Nausea and Vomiting with Metabolic Acidosis sec Acute Alcohol Pancreatitis - Pt has been having theses sxs on and off x [address] of chest done last year showed Esophagitis changes CT of the abdomen with contrast showed : Pancreatitis changes - GI consulted- rec IVF hydration- Pt was kept NPO - started on aggressive IVF hydration - started Sodium bicarb drip- acidosis resolved -IV PPI given - counseled pt regarding need to d/c ETOH - Salicylate, Acetaminophen level, Lactic acid: normal - Diet slowly upgraded ,- he tolerated Liquid and then [place] low fat diet. - Pt's pain resolved ( he has not had any pain med since yesterday ) - vomiting resolved , he tolerated Po diet - Discussed with Dr Dougherty - pt could be d/c if his pain resolves and tolerates diet. - d/c pt home , d/c ETOH, - GI ff up as outpt 2. Hyperkalemia, resolved with hydration 3. DVT proph SCD, Lovenox Discharge Exam - Head Exam Head Exam: ATRAUMATIC, NORMAL INSPECTION, NORMOCEPHALIC - Eye Exam Eye Exam: EOMI, Normal appearance, PERRL Pupil Exam: NORMAL ACCOMODATION - ENT Exam ENT Exam: Mucous Membranes Moist, Normal External Ear Exam - Neck Exam Neck exam: Full Rom - Respiratory Exam Respiratory Exam: NORMAL BREATHING PATTERN. absent: Respiratory Distress - Cardiovascular Exam Cardiovascular Exam: REGULAR RHYTHM, +S1, +S2 - GI/Abdominal Exam GI & Abdominal Exam: Normal Bowel Sounds, Soft. absent: Tenderness Additional comments: umbilical hernia - Extremities Exam Extremities exam: full ROM, normal capillary refill, normal inspection, pedal pulses present - Back Exam Back exam: FULL ROM. absent: CVA tenderness (L), CVA tenderness (R), paraspinal tenderness, vertebral tenderness - Neurological Exam Neurological exam: Alert, CN II-XII Intact, Normal Gait, Oriented x3, Reflexes Normal - Psychiatric Exam Psychiatric exam: Normal Affect, Normal Mood - Skin Skin Exam: Dry, Normal Color, Warm Discharge Plan - Discharge Medications Prescriptions: Pantoprazole Sodium [Protonix] 40 mg PO DAILY #30 ect traMADol [Ultram] 50 mg PO TID PRN #15 tab PRN Reason: Pain, Moderate (4-7) - Follow Up Plan Condition: GOOD Disposition: HOME/ ROUTINE Instructions: Acute Abdomen (Belly Pain), Adult (DC), Nausea and Vomiting, Adult (DC) Additional Instructions: follow up with your primary MD 7-10 days [place] low fat diet appt with Dr Dougherty in 1 wk Referrals: [facility] [Outside] Adrián Dougherty MD [Staff Provider] -
== END 2017-07-20 19:50 | disposition home or self-care (01) ==
LOC: H.ER 01:22 → H.ERHOLD 07:22 → H.MEDSURG1 09:56
PROVIDERS: ADMIT Internal Medicine; ATTEND Internal Medicine
DX: K85.20 Alcohol induced acute pancreatitis without necrosis or infection (principal); E87.2 Acidosis; E87.5 Hyperkalemia; F10.10 Alcohol abuse, uncomplicated; K29.70 Gastritis, unspecified, without bleeding; F41.9 Anxiety disorder, unspecified
CPT/HCPCS: 36415; 74177; 76700; 80053; 80061; 80076; 81003; 82150; 82803; 83605; 83690; 85025; 85027; 87338; 96374; 96375; 96376; 99284; C9113; G0378; G0480; J2270; J2405; J7040; J7120; Q9966; Q9967

== ENCOUNTER 2018-07-04 20:12 | Inpatient (IN) | payer MEDICAID ==
[2018-07-04 21:34] LABS: BASO % 0.3 % (0.0-2.0); EOS # 0.1 K/uL (0.0-0.7); EOS % 2.1 % (0.0-4.0); HEMOGLOBIN 14.1 g/dL (12.0-18.0); LYMPH # 1.2 K/uL (1.0-4.3); MEAN CELL VOLUME 90.5 fl (80.0-94.0); MEAN CORPUSCULAR HEMOGLOBIN 29.9 pg (27.0-31.0); MEAN CORPUSCULAR HGB CONC 33.1 g/dL (33.0-37.0); MEAN PLATELET VOLUME 7.2 fl (7.2-11.7); MONO # 0.4 K/uL (0.0-0.8); MONO % 6.8 % (0.0-10.0); NEUT # 4.3 K/uL (1.8-7.0); NEUT % 70.8 % (50.0-75.0); NRBC % 0.1 % (0.0-0.0); RBC 4.72 Mil/uL (4.40-5.90); RED CELL DISTRIBUTION WIDTH 15.3 % (11.5-14.5); WHITE BLOOD COUNT 6.1 K/uL (4.8-10.8)
[2018-07-04 21:38] LABS: VENOUS BLOOD GAS PCO2 57 mmHg (40-60); VENOUS BLOOD GAS PO2 19 mm/Hg (30-55); VENOUS BLOOD PH 7.37 (7.32-7.43)
[2018-07-04 21:44] LABS: ALB/GLOB RATIO 1.2 (1.0-2.1); ALBUMIN 4.5 g/dL (3.5-5.0); ALT/SGPT 57 U/L (21-72); AST/SGOT 121 U/L (17-59); BLOOD UREA NITROGEN 3 mg/dl (9-20); GFR NON-AFRICAN AMERICAN > 60
--- NOTE | 2018-07-04 21:44 | ED PDOC ---
HPI: Chest Pain Time Seen by Provider: 07/04/18 20:18 Chief Complaint (Nursing): Chest Pain Chief Complaint (Provider): Chest pain and epigastric pain History Per: Patient History/Exam Limitations: no limitations Onset/Duration Of Symptoms: Days (x4) Current Symptoms Are (Timing): Still Present Additional Complaint(s): 48 y/o male, with no past medical history, presents to the ER complaining of having epigastric pain and chest pain radiating to the back since Sunday. He states he has been using Antacid and Prilosec without relief. He reports he has been using a herbal supplement with gin 3-4 times a week. He indicates that when he has gin, he has "a fifth" of gin. Denies vomiting but reports having occasional nausea. He reports having normal bowel movements. PMD: none provided Past Medical History Reviewed: Historical Data, Nursing Documentation, Vital Signs Vital Signs: Last Vital Signs Temp 98.9 F 07/04/18 20:18 Pulse 84 07/04/18 20:18 Resp 16 07/04/18 20:18 BP 143/94 H 07/04/18 20:18 Pulse Ox 99 07/04/18 20:18 - Medical History PMH: Anxiety Denies: HIV, Chronic Kidney Disease - Surgical History Surgical History: No Surg Hx - Family History Family History: States: Unknown Family Hx - Immunization History Hx Tetanus Toxoid Vaccination: No Hx Influenza Vaccination: No Hx Pneumococcal Vaccination: No - Home Medications Home Medications: Ambulatory Orders Medication Instructions Recorded Mag Hydrox/Aluminum Hyd/Simeth [Eq 2 tbs PO PRN PRN 07/05/18 Liquid Antacid Susp] Omeprazole Magnesium [Prilosec Otc] 20 mg PRN PRN 07/05/18 - Allergies Allergies/Adverse Reactions: Allergies Allergy/AdvReac Type Severity Reaction Status Date / Time No Known Allergies Allergy Verified 07/04/18 20:18 Review of Systems ROS Statement: Except As Marked, All Systems Reviewed And Found Negative Cardiovascular: Positive for: Chest Pain Gastrointestinal: Positive for: Nausea, Abdominal Pain (radiating to the back), Other (Normal bowel movement). Negative for: Vomiting Physical Exam - Reviewed Nursing Documentation Reviewed: Yes Vital Signs Reviewed: Yes - Physical Exam Appears: Positive for: No Acute Distress Head Exam: Positive for: ATRAUMATIC, NORMOCEPHALIC Skin: Positive for: Normal Color, Warm, Dry Eye Exam: Positive for: Normal appearance Neck: Positive for: Normal, Painless ROM Cardiovascular/Chest: Positive for: Regular Rate, Rhythm Respiratory: Positive for: Normal Breath Sounds. Negative for: Wheezing, Respiratory Distress Gastrointestinal/Abdominal: Positive for: Tenderness (tenderness to palpation in epigastric region), Distended, Hernia (umbilical) Extremity: Positive for: Normal ROM Neurological/Psych: Positive for: Awake, Alert, Normal Tone, Oriented - Laboratory Results Result Diagrams: 07/04/18 21:25 07/04/18 21:25 Lab Results: pO2 19 mm/Hg (30-55) L 07/04/18 21:32 VBG pH 7.37 (7.32-7.43) 07/04/18 21:32 VBG pCO2 57 mmHg (40-60) 07/04/18 21:32 VBG HCO3 27.7 mmol/L 07/04/18 21:32 VBG Total CO2 34.7 mmol/L (22-28) H 07/04/18 21:32 VBG O2 Sat (Calc) 31.5 % (40-65) L 07/04/18 21:32 VBG Base Excess 6.0 mmol/L (0.0-2.0) H 07/04/18 21:32 VBG Potassium 4.2 mmol/L (3.6-5.2) 07/04/18 21:32 Sodium 132.0 mmol/L (132-148) 07/04/18 21:32 Chloride 98.0 mmol/L (98-107) 07/04/18 21:32 Glucose 122 mg/dL (75-110) H 07/04/18 21:32 Lactate 1.7 mmol/L (0.7-2.1) 07/04/18 21:32 FiO2 21.0 % 07/04/18 21:32 - ECG O2 Sat by Pulse Oximetry: 99 (RA) Pulse Ox Interpretation: Normal Medical Decision Making Medical Decision Making: Initial Impression: Likely alcohol induced pancreatitis Initial Plan: --VBG shock panel --CT abd/pelvis --EKG --CMP --Lipase stat --CBC --Chest X-ray --Urinalysis 0034 Abdomen/Pelvis CT FINDINGS: LUNG BASES: Minimal linear atelectasis near the bases. LIVER: Diffuse fatty infiltration of liver. GALLBLADDER AND BILE DUCTS: The gallbladder appears within normal limits. No radioopaque gallstones are seen. No biliary ductal dilatation is evident. PANCREAS: There is fluid and fatty stranding near the distal body and tail the pancreas compatible with acute pancreatitis. There is additional mild stranding near the pancreatic head and uncinate process and near the 2nd and 3rd duodenum. It is difficult to exclude a component of duodenitis. The pancreatitis appears slightly worse currently than on the prior study dated July 19, 2017. SPLEEN: Unremarkable. ADRENAL GLANDS: Unremarkable. KIDNEYS, URETERS, AND BLADDER: Bladder is decompressed. STOMACH AND BOWEL: Stomach is decompressed. Question rectal wall thickening versus underdistention. Please correlate clinically. Again seen is a large fat containing periumbilical hernia, little change from the prior study. There is slight involvement a bowel loop, with no obstruction. Tiny hiatal hernia versus mild distal esophageal wall thickening. Similarly, there is questionable mild diffuse wall thickening of the stomach versus underdistention. Please correlate clinically and if indicated this could be further evaluated with esophagram or upper endoscopy. No bowel obstruction. There is some stasis within small bowel loops in the right abdomen pelvis, without substantial dilatation. This may represent a degree of ileus and could p erhaps be related to the underlying pancreatitis. Please correlate clinically and if indicated followup imaging can be obtained. APPENDIX: No evidence of acute appendicitis on CT examination. PERITONEUM: No free fluid. No free air. LYMPH NODES: No lymphadenopathy is evident. REPRODUCTIVE: The prostate is top normal in size measuring 4.7 cm transverse. VASCULATURE: No evidence of abdominal aortic aneurysm. BONES: Mild multilevel degenerative spine changes. MISCELLANEOUS: There is a small fat containing left inguinal hernia. IMPRESSION: 1. Diffuse fatty infiltration of liver. 2. There is fluid and fatty stranding near the distal body and tail the pancreas compatible with acute pancreatitis. There is additional mild stranding near the pancreatic head and uncinate process and near the 2nd and 3rd duodenum. It is difficult to exclude a component of duodenitis. The pancreatitis appears slightly worse currently than on the prior study dated July 19, 2017. 3. Question rectal wall thickening versus underdistention. Please correlate clinically. 4. Again seen is a large fat containing periumbilical hernia, little change from the prior study. There is slight involvement a bowel loop, with no obstruction. 5. Tiny hiatal hernia versus mild distal esophageal wall thickening. Similarly, there is questionable mild diffuse wall thickening of the stomach versus und erdistention. Please correlate clinically and if indicated this could be further evaluated with esophagram or upper endoscopy. 6. There is some stasis within small bowel loops in the right abdomen pelvis, without substantial dilatation. This may represent a degree of ileus and could perhaps be related to the underlying pancreatitis. Please correlate clinically and if indicated followup imaging can be obtained. 7. Additional findings as described above. Case was discussed with Dr. Dougherty who recommends IVF, will consult on patient tomorrow Dr. Win is aware of patient LR 2000 mL's ordered Scribe Attestation: Documented by Saul Segura acting as a scribe for Fabian Mao MD. Provider Scribe Attestation: All medical record entries made by the Scribe were at my direction and personally dictated by me. I have reviewed the chart and agree that the record accurately reflects my personal performance of the history, physical exam, medical decision making, and the department course for this patient. I have also personally directed, reviewed, and agree with the discharge instructions and disposition. Disposition - Clinical Impression Clinical Impression: Acute alcoholic pancreatitis - Patient ED Disposition Is Patient to be Admitted: Yes Discussed With DrJohn: Adrián Dougherty Doctor Will See Patient In The: Hospital Counseled Patient/Family Regarding: Studies Performed, Diagnosis - Disposition Disposition Time: 00:00 Condition: FAIR
[2018-07-04 22:14] LABS: LIPASE 8691 U/L (23-300)
[2018-07-04] MEDS ORDERED: Sterile Water 10 ML IV ONE (22:46)
[2018-07-04] MEDS ORDERED: Iohexol 300 100 ML IJ ONE (22:57)
[2018-07-04] MEDS ORDERED: Sodium Chloride 0.9% 50 ML IV ONE (22:57)
[2018-07-04] MEDS: Lactated Ringer's 2,000 ML IV SCH (23:09)
--- NOTE | 2018-07-04 23:10 | CP.PCM.HP ---
<Elio Meeks - Last Filed: 07/05/18 02:06> History of Present Illness - History of Present Illness History of Present Illness: 48 y/o M with a PMHx of pancreatitis presented to ED complaining of abdominal pain that started 4 days ago. Abdominal pain is described as sharp, burning, epigastric location, radiates to his back, 10/10 intensity associated with nausea and lack of appetite. No ill contacts. No recent travel. Pt has been taking OTC Prilosec, Tylenol and Maalox with slight improvement. Pt denies fever, chest pain, SOB, vomiting, change in bowel movement. --Pt reports taking a herbal medication 3x a week. It consists of a tea powder from [place] that has to be mixed with a shot volume of pure alcohol. Last shot was 5 days ago, the day before onset of symptoms. Pt also drinks some whisky every weekend. --Similar episode 1 year ago, but at that time there was vomiting. CT of the abdomen with contrast showed pancreatitis changes. Pt was disgnosed with alcoholic pancreatitis. PMD: None NKDA Meds: none PMHx: Alcoholic pancreatitis. PSHx: denied FHx: NC SHx: No tobacco or rec drugs. Alcohol as decribed as above. ED Course: --VS WNL except for elevated BP --CMP showed mild hypokalemia --Lipase 8691-elevated. --IV Pantoprazole and 2 liters-boluse of LR were administered. --CT Abdomen showed acute pancreatitis. Present on Admission - Present on Admission Any Indicators Present on Admission: No Review of Systems - Constitutional Constitutional: Anorexia. absent: Fever - EENT Eyes: absent: Change in Vision Nose/Mouth/Throat: absent: Epistaxis, Nasal Congestion, Sore Throat, Neck Mass - Cardiovascular Cardiovascular: absent: Chest Pain, Dyspnea, Palpitations, Pedal Edema - Respiratory Respiratory: absent: Cough, Dyspnea, Hemoptysis - Gastrointestinal Gastrointestinal: Abdominal Pain, Nausea. absent: Diarrhea, Hematemesis, Hematochezia, Vomiting - Genitourinary Genitourinary: absent: Dysuria, Flank Pain, Hematuria, Nocturia Past Patient History - Infectious Disease Hx of Infectious Diseases: None - Tetanus Immunizations Tetanus Immunization: Unknown - Past Medical History & Family History Past Medical History?: No - Past Social History Smoking Status: Never Smoked Chewing Tobacco Use: No - CARDIAC Hx Cardiac Disorders: No - PULMONARY Hx Respiratory Disorders: No - NEUROLOGICAL Hx Neurological Disorder: No - HEENT Hx HEENT Problems: No - RENAL Hx Chronic Kidney Disease: No - ENDOCRINE/METABOLIC Hx Endocrine Disorders: No - HEMATOLOGICAL/ONCOLOGICAL Hx Human Immunodeficiency Virus (HIV): No - INTEGUMENTARY Hx Dermatological Problems: No - MUSCULOSKELETAL/RHEUMATOLOGICAL Hx Musculoskeletal Disorders: No - GASTROINTESTINAL Hx Nausea: Yes Hx Vomiting: Yes Other/Comment: CT scan of chest done last ye showed Esophagitis - GENITOURINARY/GYNECOLOGICAL Hx Genitourinary Disorders: No - PSYCHIATRIC Hx Anxiety: Yes - SURGICAL HISTORY Hx Surgeries: No - ANESTHESIA Hx Anesthesia: No Meds Allergies/Adverse Reactions: Allergies Allergy/AdvReac Type Severity Reaction Status Date / Time No Known Allergies Allergy Verified 07/04/18 20:18 Physical Exam - Constitutional Appears: No Acute Distress - Head Exam Head Exam: ATRAUMATIC, NORMAL INSPECTION, NORMOCEPHALIC - Eye Exam Eye Exam: EOMI - ENT Exam ENT Exam: Mucous Membranes Dry - Neck Exam Neck exam: Positive for: Full Rom, Normal Inspection. Negative for: Lymphadenopathy - Respiratory Exam Respiratory Exam: Clear to Auscultation Bilateral, NORMAL BREATHING PATTERN. absent: Respiratory Distress - Cardiovascular Exam Cardiovascular Exam: REGULAR RHYTHM, +S1, +S2 - GI/Abdominal Exam GI & Abdominal Exam: Distended, Guarding, Tenderness (diffuse) Additional comments: Bowel present in all quadrants. Umbilical hernia, ~5cm diameter present on inspection, tender at this moment. - Extremities Exam Extremities exam: Positive for: full ROM, normal inspection. Negative for: calf tenderness, pedal edema - Neurological Exam Neurological exam: Alert, Oriented x3 Results - Vital Signs Recent Vital Signs: Last Vital Signs Temp 98.9 F 07/04/18 20:18 Pulse 84 07/04/18 20:18 Resp 16 07/04/18 20:18 BP 143/94 H 07/04/18 20:18 Pulse Ox 99 07/04/18 21:49 - Labs Result Diagrams: 07/04/18 21:25 07/04/18 21:25 Labs: Laboratory Results - last 24 hr 07/04/18 07/04/18 07/04/18 21:25 21:25 21:32 WBC 6.1 RBC 4.72 Hgb 14.1 Hct 42.7 MCV 90.5 D MCH 29.9 MCHC 33.1 RDW 15.3 H Plt Count 222 MPV 7.2 Neut % (Auto) 70.8 Lymph % (Auto) 20.0 Webb % (Auto) 6.8 Eos % (Auto) 2.1 Baso % (Auto) 0.3 Neut # (Auto) 4.3 Lymph # (Auto) 1.2 Webb # (Auto) 0.4 Eos # (Auto) 0.1 Baso # (Auto) 0.0 pO2 19 L VBG pH 7.37 VBG pCO2 57 VBG HCO3 27.7 VBG Total CO2 34.7 H VBG O2 Sat (Calc) 31.5 L VBG Base Excess 6.0 H VBG Potassium 4.2 Glucose 122 H Lactate 1.7 FiO2 21.0 Sodium 134 132.0 Potassium 3.5 L Chloride 93 L 98.0 Carbon Dioxide 29 Anion Gap 16 BUN 3 L Creatinine 0.9 Est GFR ( Amer) > 60 Est GFR (Non-Af Amer) > 60 Random Glucose 112 H Calcium 10.0 Total Bilirubin 0.8 AST 121 H ALT 57 Alkaline Phosphatase 88 Total Protein 8.2 Albumin 4.5 Globulin 3.7 Albumin/Globulin Ratio 1.2 Lipase 8691 H Venous Blood Potassium 4.2 Assessment & Plan - Assessment and Plan (Free Text) Assessment: 48 y/o M with a PMHx of alcoholic pancreatitis is admitted for evaluation adn management of acute pancreatitis. --CT Abdomen: Diffuse fatty infiltration of liver, compatible with acute pancreatitis. PLAN: >Acute Pancreatitis --Afebrile, no leukocytosis, elevated BP likely due to pain. --Lipase 8691-elevated. --GI consult, Dr Dougherty. --NPO, Pantoprazole and PRN Zofran. --Pain management with IV Toradol --IV FLuids: 2 Liters at ED, ordered IV D5-1/2NS and 20KCl at 250mL/hr. --F/U labs. --monitor vitals. >Hypokalemia --Mild, --IV D5-1/2NS and 20KCl at 250mL/hr. --F/U tomorrow's labs. >DVT Prophylaxis --SCD's. Case discussed with Dr Quirino Meeks PGY-2 - Date & Time Date: 07/04/18 Time: 23:37 <Alli Win - Last Filed: 07/05/18 09:19> Results - Vital Signs Recent Vital Signs: Last Vital Signs Temp 98.9 F 07/05/18 08:11 Pulse 75 07/05/18 08:11 Resp 20 07/05/18 08:11 BP 124/82 07/05/18 08:11 Pulse Ox 98 07/05/18 08:11 - Labs Result Diagrams: 07/04/18 21:25 07/05/18 05:31 Labs: Laboratory Results - last 24 hr 07/04/18 07/04/18 07/04/18 21:25 21:25 21:32 WBC 6.1 RBC 4.72 Hgb 14.1 Hct 42.7 MCV 90.5 D MCH 29.9 MCHC 33.1 RDW 15.3 H Plt Count 222 MPV 7.2 Neut % (Auto) 70.8 Lymph % (Auto) 20.0 Webb % (Auto) 6.8 Eos % (Auto) 2.1 Baso % (Auto) 0.3 Neut # (Auto) 4.3 Lymph # (Auto) 1.2 Webb # (Auto) 0.4 Eos # (Auto) 0.1 Baso # (Auto) 0.0 PT INR APTT pO2 19 L VBG pH 7.37 VBG pCO2 57 VBG HCO3 27.7 VBG Total CO2 34.7 H VBG O2 Sat (Calc) 31.5 L VBG Base Excess 6.0 H VBG Potassium 4.2 Glucose 122 H Lactate 1.7 FiO2 21.0 Sodium 134 132.0 Potassium 3.5 L Chloride 93 L 98.0 Carbon Dioxide 29 Anion Gap 16 BUN 3 L Creatinine 0.9 Est GFR ( Amer) > 60 Est GFR (Non-Af Amer) > 60 Random Glucose 112 H Calcium 10.0 Phosphorus Magnesium Total Bilirubin 0.8 AST 121 H ALT 57 Alkaline Phosphatase 88 Total Protein 8.2 Albumin 4.5 Globulin 3.7 Albumin/Globulin Ratio 1.2 Lipase 8691 H Venous Blood Potassium 4.2 Urine Color Urine Clarity Urine pH Ur Specific [place] Urine Protein Urine Glucose (UA) Urine Ketones Urine Blood Urine Nitrate Urine Bilirubin Urine Urobilinogen Ur Leukocyte Esterase Urine RBC (Auto) Urine Microscopic WBC Ur Squamous Epith Cells 07/04/18 07/05/18 07/05/18 23:00 02:10 05:31 WBC RBC Hgb Hct MCV MCH MCHC RDW Plt Count MPV Neut % (Auto) Lymph % (Auto) Webb % (Auto) Eos % (Auto) Baso % (Auto) Neut # (Auto) Lymph # (Auto) Webb # (Auto) Eos # (Auto) Baso # (Auto) PT 9.7 L INR 0.9 APTT 28.5 pO2 VBG pH VBG pCO2 VBG HCO3 VBG Total CO2 VBG O2 Sat (Calc) VBG Base Excess VBG Potassium Glucose Lactate FiO2 Sodium 135 Potassium 4.0 Chloride 99 Carbon Dioxide 28 Anion Gap 12 BUN 3 L Creatinine 0.9 Est GFR ( Amer) > 60 Est GFR (Non-Af Amer) > 60 Random Glucose 110 Calcium 9.3 Phosphorus 3.1 Magnesium 1.9 Total Bilirubin 0.7 AST 87 H D ALT 49 Alkaline Phosphatase 68 Total Protein 6.9 Albumin 3.7 Globulin 3.2 Albumin/Globulin Ratio 1.2 Lipase Venous Blood Potassium Urine Color Straw Urine Clarity Clear Urine pH 9.0 Ur Specific [place] 1.036 H Urine Protein Negative Urine Glucose (UA) Neg Urine Ketones Trace Urine Blood Negative Urine Nitrate Negative Urine Bilirubin Negative Urine Urobilinogen 0.2-1.0 Ur Leukocyte Esterase Neg Urine RBC (Auto) 1 Urine Microscopic WBC 1 Ur Squamous Epith Cells 1 Attending/Attestation - Attestation I have personally seen and examined this patient.: Yes I have fully participated in the care of the patient.: Yes I have reviewed all pertinent clinical information: Yes Notes (Text): 07/05/18 09:04 I saw, examined and discussed this patient with Dr Meeks. I agree with the assessment and plan abve which represent my direct input. This is a 48 years old male with hx of Alcoholic pancreatitis who comes with pain generalized to the whole abdomen and radiating to the back. He referred takinig some herbal medication which had to be dissolved in alcohol. Both the Abdominal Ultrasound and the CT scan detected Acute Pancreatitis. We sill consult Gastroenterology and give the patient nothing by mouth, IV fluids and pain management and PPI until the patient could tolerate oral diet. Alli Win MD
[2018-07-04 23:15] LABS: INR 0.9
[2018-07-04 23:18] LABS: PARTIAL THROMBOPLASTIN TIME 28.5 Seconds (25.6-37.1)
[2018-07-04 23:24] LABS: PROTHROMBIN TIME 9.7 Seconds (9.8-13.1)
[2018-07-05] MEDS ORDERED: Potassium Ch 20mEq in D5-1/2NS 1,000 ML IV ONE (01:00)
[2018-07-05] MEDS ORDERED: Potassium Ch 20mEq in D5-1/2NS 1,000 ML IV SCH (01:00)
[2018-07-05 02:25] LABS: SQUAMOUS EPITHIAL 1 /hpf (0-5); URINE BILIRUBIN NEGATIVE (NEGATIVE); URINE BLOOD NEGATIVE (NEGATIVE); URINE CLARITY CLEAR (Clear); URINE COLOR STRAW (YELLOW); URINE GLUCOSE (UA) NEG (NEGATIVE); URINE LEUKOCYTE ESTERASE NEG Leu/uL (Negative); URINE PROTEIN NEGATIVE (NEGATIVE); URINE UROBILINOGEN 0.2-1.0 mg/dL (0.2-1.0)
[2018-07-05 07:02] LABS: ALB/GLOB RATIO 1.2 (1.0-2.1); ALBUMIN 3.7 g/dL (3.5-5.0); ALT/SGPT 49 U/L (21-72); AST/SGOT 87 U/L (17-59); BLOOD UREA NITROGEN 3 mg/dl (9-20); CALCIUM 9.3 mg/dL (8.4-10.2); GFR NON-AFRICAN AMERICAN > 60
--- NOTE | 2018-07-05 08:23 | RAD ---
Date of service: 07/04/2018 HISTORY: chest pain, abdominal pain COMPARISON: No prior. TECHNIQUE: Chest PA and lateral views FINDINGS: LUNGS: No active pulmonary disease. PLEURA: No significant pleural effusion identified. No pneumothorax apparent. CARDIOVASCULAR: No aortic atherosclerotic calcification present. Normal cardiac size. No pulmonary vascular congestion. OSSEOUS STRUCTURES: No significant abnormalities. VISUALIZED UPPER ABDOMEN: Normal. OTHER FINDINGS: None. IMPRESSION: No acute cardiopulmonary disease appreciated.
[2018-07-05] MEDS: Lactated Ringer's 1,000 ML IV SCH ×3 (10:08→18:37)
[2018-07-05] MEDS: Lactated Ringer's 2,000 ML IV SCH (10:41)
--- NOTE | 2018-07-05 10:47 | CT ---
Date of service: 07/04/2018 PROCEDURE: CT Abdomen and Pelvis with contrast HISTORY: ETOH abuse, epig pain, hx of pancreatitis COMPARISON: Abdomen pelvis CT with oral and intravenous contrast 07/19/2017. TECHNIQUE: Following the intravenous administration of iodinated contrast material, a CT examination of the abdomen and pelvis was performed from the domes of the diaphragms to the symphysis pubis with reformatted datasets provided in axial, sagittal and coronal planes. Oral contrast was not administered as per referring physician request. Contrast dose: Omnipaque 300, 95 cc Radiation dose: Total exam DLP = 301.09 mGy-cm. This CT exam was performed using one or more of the following dose reduction techniques: Automated exposure control, adjustment of the mA and/or kV according to patient size, and/or use of iterative reconstruction technique. FINDINGS: LOWER THORAX: Unremarkable. LIVER: Diminished attenuation throughout the liver is compatible with hepatic steatosis without focal mass appreciable. No intrahepatic biliary dilatation evident. GALLBLADDER AND BILE DUCTS: Gallbladder is distended but otherwise appears unremarkable. No radiodense cholelithiasis associated. PANCREAS: Peripancreatic reaction fluid are identified surrounding the entire pancreas without significant dilatation of the pancreatic duct. Pancreatic duct identified a measuring up to 2.5 mm caliber at the level of the neck through body. Trace fluid is identified in the pelvis as well as minimally at the right pericolic gutter. No obvious pattern of pancreatic necrosis or pseudocyst formation. Pattern is most compatible with pancreatitis. Clinically correlate further nevertheless. A affected pancreas appears increased compared to prior CT from 2018 noted above. SPLEEN: Unremarkable. ADRENALS: Unremarkable. No mass. KIDNEYS AND URETERS: Unremarkable. No hydronephrosis. No solid mass. VASCULATURE: Unremarkable. No aortic aneurysm. No aortic atherosclerotic calcification or mural plaque present. BOWEL: No bowel obstruction is appreciated at this time, however, persistent umbilical hernia is identified now containing a short segment of apparent small bowel with a stable neck of 4.2 cm. No definite pattern of bowel incarceration at this time. APPENDIX: Normal appendix. PERITONEUM: Unremarkable. No free fluid. No free air. LYMPH NODES: Unremarkable. No enlarged lymph nodes. BLADDER: Urinary bladder is partially collapsed and poorly evaluated. Mural thickening not excluded. REPRODUCTIVE: Unremarkable. BONES: No acute fracture. OTHER FINDINGS: None. IMPRESSION: Findings reflect likely recurrent pancreatitis pattern involving more of the pancreas and previously shown at the time of prior imaging prior CT 07/19/2017. No obvious pseudocyst formation or pancreatic necrosis appreciable this time. Clinical correlation is advised as well as CT follow-up. Recurrent or chronic hepatic steatosis without focal mass or intrahepatic biliary dilatation. Preliminary report provided by Nadia, 07/05/2018, 12:34 a.m..
--- NOTE | 2018-07-05 11:06 | CP.PCM.PN ---
<Natalie Segura - Last Filed: 07/05/18 11:47> Subjective - Date & Time of Evaluation Date of Evaluation: 07/05/18 Time of Evaluation: 11:06 - Subjective Subjective: 48 y/o M with a PMHx of pancreatitis complaining of abdominal pain that started 4 days ago. Patient states the abdominal pain has been getting better, however his back is very painful today. States he has been on liquid diet without any issues. Denies acute overnight events Objective - Vital Signs/Intake and Output Vital Signs (last 24 hours): Temp Pulse Resp BP Pulse Ox 98.9 F 75 20 124/82 98 07/05/18 08:11 07/05/18 08:11 07/05/18 08:11 07/05/18 08:11 07/05/18 08:11 - Medications Medications: Current Medications Lactated Ringer's (Lactated Ringer's) 2,000 mls @ 2,000 mls/hr IV .Q1H [facility] Last Admin: 07/05/18 10:41 Dose: 2,000 mls/hr Lactated Ringer's (Lactated Ringer's) 1,000 mls @ 250 mls/hr IV .Q4H [facility] Last Admin: 07/05/18 10:08 Dose: 250 mls/hr Ketorolac Tromethamine (Toradol) 30 mg IVP Q6 PRN PRN Reason: Pain, severe (8-10) Last Admin: 07/05/18 10:01 Dose: 30 mg Ketorolac Tromethamine (Toradol) 15 mg IVP Q6 PRN PRN Reason: Pain, moderate (4-7) Ondansetron HCl (Zofran Inj) 4 mg IVP Q6 PRN PRN Reason: Nausea/Vomiting Pantoprazole Sodium (Protonix Inj) 40 mg IVP DAILY [facility] Last Admin: 07/05/18 10:01 Dose: 40 mg - Labs Labs: 07/04/18 21:25 07/05/18 05:31 PT 9.7 Seconds (9.8-13.1) L 07/04/18 23:00 INR 0.9 07/04/18 23:00 APTT 28.5 Seconds (25.6-37.1) 07/04/18 23:00 - Constitutional Appears: Well, Non-toxic, No Acute Distress - Head Exam Head Exam: ATRAUMATIC, NORMOCEPHALIC - Eye Exam Eye Exam: Normal appearance Pupil Exam: NORMAL ACCOMODATION - ENT Exam ENT Exam: Mucous Membranes Moist - Respiratory Exam Respiratory Exam: NORMAL BREATHING PATTERN - Cardiovascular Exam Cardiovascular Exam: REGULAR RHYTHM, +S1, +S2 - Neurological Exam Neurological Exam: Alert, Awake - Psychiatric Exam Psychiatric exam: Normal Affect Assessment and Plan - Assessment and Plan (Free Text) Assessment: 48 y/o M with a PMHx of alcoholic pancreatitis is admitted for evaluation adn management of acute pancreatitis. --CT Abdomen: Diffuse fatty infiltration of liver, compatible with acute pancreatitis. Plan: >Acute Pancreatitis --Afebrile, no leukocytosis, BP controlled --Lipase 8691-elevated. --GI consult, Dr Dougherty. --liquid diet Pantoprazole and PRN Zofran. --Pain management with IV Toradol --IV FLuids: 2 Liters at ED, ordered IV D5-1/2NS and 20KCl at 250mL/hr. --monitor vitals. -ABD/pelvis CT- recurrent pancreatitis, no obvious pseudocyst formation or pancreatic necrosis. Chronic hepatic steatosis without focal mass or intrahepatic biliary dilatation - f/u lipid panel >Hypokalemia --Mild, --IV D5-1/2NS and 20KCl at 250mL/hr. >Back pain --Lidocaine patch >DVT Prophylaxis --SCD's. <Erica Berg - Last Filed: 07/05/18 15:40> Objective - Vital Signs/Intake and Output Vital Signs (last 24 hours): Temp Pulse Resp BP Pulse Ox 98.9 F 75 20 124/82 98 07/05/18 08:11 07/05/18 08:11 07/05/18 08:11 07/05/18 08:11 07/05/18 08:11 - Medications Medications: Current Medications Lactated Ringer's (Lactated Ringer's) 2,000 mls @ 2,000 mls/hr IV .Q1H [facility] Last Admin: 07/05/18 10:41 Dose: 2,000 mls/hr Lactated Ringer's (Lactated Ringer's) 1,000 mls @ 250 mls/hr IV .Q4H [facility] Last Admin: 07/05/18 14:31 Dose: 250 mls/hr Ketorolac Tromethamine (Toradol) 30 mg IVP Q6 PRN PRN Reason: Pain, severe (8-10) Last Admin: 07/05/18 10:01 Dose: 30 mg Ketorolac Tromethamine (Toradol) 15 mg IVP Q6 PRN PRN Reason: Pain, moderate (4-7) Last Admin: 07/05/18 14:42 Dose: 15 mg Ondansetron HCl (Zofran Inj) 4 mg IVP Q6 PRN PRN Reason: Nausea/Vomiting Pantoprazole Sodium (Protonix Inj) 40 mg IVP DAILY [facility] Last Admin: 07/05/18 10:01 Dose: 40 mg - Labs Labs: 07/04/18 21:25 07/05/18 05:31 PT 9.7 Seconds (9.8-13.1) L 07/04/18 23:00 INR 0.9 07/04/18 23:00 APTT 28.5 Seconds (25.6-37.1) 07/04/18 23:00 Attending/Attestation - Attestation I have personally seen and examined this patient.: Yes I have fully participated in the care of the patient.: Yes I have reviewed all pertinent clinical information, including history, physical exam and plan: Yes Notes (Text): 07/05/18 15:40 agree with findings and plan as above.
[2018-07-05 12:43] LABS: HDL CHOLESTEROL 94 MG/DL (30-70); LIPASE 1676 U/L (23-300)
[2018-07-05 12:55] LABS: LDL CHOLESTEROL 92 mg/dL (0-129)
--- NOTE | 2018-07-05 13:38 | CARD ---
APPROVED REPORT Date of service: 07/04/2018 EKG Measurement Heart [id number] <Conclusion> Normal sinus rhythm Voltage criteria for left ventricular hypertrophy Abnormal ECG
--- NOTE | 2018-07-05 15:30 | CP.PCM.CON ---
History of Present Illness - History of Present Illness History of Present Illness: 48 yo male with h/o pancreatitis presenting to ER after 4 days of intense abdominal pain. Pain is in epigastrum and radiates to upper back Somewhat better this morning. He uses a herbal medicine which he mixes with alcohol three times a week. He also ingests alcohol on weekends. Had similar episode a year ago Review of Systems - Constitutional Constitutional: absent: Chills - EENT Eyes: absent: Change in Vision Ears: absent: Ear Discharge - Cardiovascular Cardiovascular: absent: Chest Pain - Gastrointestinal Gastrointestinal: As Per HPI - Genitourinary Genitourinary: absent: Change in Urinary Stream Past Patient History - Infectious Disease Hx of Infectious Diseases: None - Tetanus Immunizations Tetanus Immunization: Unknown - Past Medical History & Family History Past Medical History?: No - Past Social History Smoking Status: Never Smoked - CARDIAC Hx Cardiac Disorders: No - PULMONARY Hx Respiratory Disorders: No - NEUROLOGICAL Hx Neurological Disorder: No - HEENT Hx HEENT Problems: No - RENAL Hx Chronic Kidney Disease: No - ENDOCRINE/METABOLIC Hx Endocrine Disorders: No - HEMATOLOGICAL/ONCOLOGICAL Hx Human Immunodeficiency Virus (HIV): No - INTEGUMENTARY Hx Dermatological Problems: No - MUSCULOSKELETAL/RHEUMATOLOGICAL Hx Falls: No - GASTROINTESTINAL Hx Nausea: Yes Hx Vomiting: Yes Other/Comment: CT scan of chest done last yewar showed Esophagitis - GENITOURINARY/GYNECOLOGICAL Hx Genitourinary Disorders: No - PSYCHIATRIC Hx Anxiety: Yes - SURGICAL HISTORY Hx Surgeries: No - ANESTHESIA Hx Anesthesia: No Meds Allergies/Adverse Reactions: Allergies Allergy/AdvReac Type Severity Reaction Status Date / Time No Known Allergies Allergy Verified 07/04/18 20:18 - Medications Medications: Current Medications Lactated Ringer's (Lactated Ringer's) 2,000 mls @ 2,000 mls/hr IV .Q1H [facility] Last Admin: 07/05/18 10:41 Dose: 2,000 mls/hr Lactated Ringer's (Lactated Ringer's) 1,000 mls @ 250 mls/hr IV .Q4H [facility] Last Admin: 07/05/18 14:31 Dose: 250 mls/hr Ketorolac Tromethamine (Toradol) 30 mg IVP Q6 PRN PRN Reason: Pain, severe (8-10) Last Admin: 07/05/18 10:01 Dose: 30 mg Ketorolac Tromethamine (Toradol) 15 mg IVP Q6 PRN PRN Reason: Pain, moderate (4-7) Last Admin: 07/05/18 14:42 Dose: 15 mg Ondansetron HCl (Zofran Inj) 4 mg IVP Q6 PRN PRN Reason: Nausea/Vomiting Pantoprazole Sodium (Protonix Inj) 40 mg IVP DAILY [facility] Last Admin: 07/05/18 10:01 Dose: 40 mg Physical Exam - Constitutional Appears: Non-toxic - Head Exam Head Exam: ATRAUMATIC - Eye Exam Eye Exam: Normal appearance - ENT Exam ENT Exam: Normal Exam - Neck Exam Neck exam: Positive for: Normal Inspection - Respiratory Exam Respiratory Exam: Clear to Auscultation Bilateral - Cardiovascular Exam Cardiovascular Exam: REGULAR RHYTHM, +S1, +S2 - GI/Abdominal Exam GI & Abdominal Exam: Normal Bowel Sounds, Tenderness Results - Vital Signs Recent Vital Signs: Last Vital Signs Temp 98.9 F 07/05/18 08:11 Pulse 75 07/05/18 08:11 Resp 20 07/05/18 08:11 BP 124/82 07/05/18 08:11 Pulse Ox 98 07/05/18 08:11 - Labs Result Diagrams: 07/04/18 21:25 07/05/18 05:31 Labs: Laboratory Results - last 24 hr 07/04/18 07/04/18 07/04/18 21:25 21:25 21:32 WBC 6.1 RBC 4.72 Hgb 14.1 Hct 42.7 MCV 90.5 D MCH 29.9 MCHC 33.1 RDW 15.3 H Plt Count 222 MPV 7.2 Neut % (Auto) 70.8 Lymph % (Auto) 20.0 [place] % (Auto) 6.8 Eos % (Auto) 2.1 Baso % (Auto) 0.3 Neut # (Auto) 4.3 Lymph # (Auto) 1.2 [place] # (Auto) 0.4 Eos # (Auto) 0.1 Baso # (Auto) 0.0 PT INR APTT pO2 19 L VBG pH 7.37 VBG pCO2 57 VBG HCO3 27.7 VBG Total CO2 34.7 H VBG O2 Sat (Calc) 31.5 L VBG Base Excess 6.0 H VBG Potassium 4.2 Glucose 122 H Lactate 1.7 FiO2 21.0 Sodium 134 132.0 Potassium 3.5 L Chloride 93 L 98.0 Carbon Dioxide 29 Anion Gap 16 BUN 3 L Creatinine 0.9 Est GFR ( Amer) > 60 Est GFR (Non-Af Amer) > 60 Random Glucose 112 H Calcium 10.0 Phosphorus Magnesium Total Bilirubin 0.8 AST 121 H ALT 57 Alkaline Phosphatase 88 Total Protein 8.2 Albumin 4.5 Globulin 3.7 Albumin/Globulin Ratio 1.2 Triglycerides Cholesterol LDL Cholesterol Direct HDL Cholesterol Lipase 8691 H Venous Blood Potassium 4.2 Urine Color Urine Clarity Urine pH Ur Specific [place] Urine Protein Urine Glucose (UA) Urine Ketones Urine Blood Urine Nitrate Urine Bilirubin Urine Urobilinogen Ur Leukocyte Esterase Urine RBC (Auto) Urine Microscopic WBC Ur Squamous Epith Cells 07/04/18 07/05/18 07/05/18 23:00 02:10 05:31 WBC RBC Hgb Hct MCV MCH MCHC RDW Plt Count MPV Neut % (Auto) Lymph % (Auto) [place] % (Auto) Eos % (Auto) Baso % (Auto) Neut # (Auto) Lymph # (Auto) [place] # (Auto) Eos # (Auto) Baso # (Auto) PT 9.7 L INR 0.9 APTT 28.5 pO2 VBG pH VBG pCO2 VBG HCO3 VBG Total CO2 VBG O2 Sat (Calc) VBG Base Excess VBG Potassium Glucose Lactate FiO2 Sodium 135 Potassium 4.0 Chloride 99 Carbon Dioxide 28 Anion Gap 12 BUN 3 L Creatinine 0.9 Est GFR ( Amer) > 60 Est GFR (Non-Af Amer) > 60 Random Glucose 110 Calcium 9.3 Phosphorus 3.1 Magnesium 1.9 Total Bilirubin 0.7 AST 87 H D ALT 49 Alkaline Phosphatase 68 Total Protein 6.9 Albumin 3.7 Globulin 3.2 Albumin/Globulin Ratio 1.2 Triglycerides Cholesterol LDL Cholesterol Direct HDL Cholesterol Lipase Venous Blood Potassium Urine Color Straw Urine Clarity Clear Urine pH 9.0 Ur Specific [place] 1.036 H Urine Protein Negative Urine Glucose (UA) Neg Urine Ketones Trace Urine Blood Negative Urine Nitrate Negative Urine Bilirubin Negative Urine Urobilinogen 0.2-1.0 Ur Leukocyte Esterase Neg Urine RBC (Auto) 1 Urine Microscopic WBC 1 Ur Squamous Epith Cells 1 07/05/18 10:10 WBC RBC Hgb Hct MCV MCH MCHC RDW Plt Count MPV Neut % (Auto) Lymph % (Auto) [place] % (Auto) Eos % (Auto) Baso % (Auto) Neut # (Auto) Lymph # (Auto) [place] # (Auto) Eos # (Auto) Baso # (Auto) PT INR APTT pO2 VBG pH VBG pCO2 VBG HCO3 VBG Total CO2 VBG O2 Sat (Calc) VBG Base Excess VBG Potassium Glucose Lactate FiO2 Sodium Potassium Chloride Carbon Dioxide Anion Gap BUN Creatinine Est GFR ( Amer) Est GFR (Non-Af Amer) Random Glucose Calcium Phosphorus Magnesium Total Bilirubin AST ALT Alkaline Phosphatase Total Protein Albumin Globulin Albumin/Globulin Ratio Triglycerides 51 D Cholesterol 215 H LDL Cholesterol Direct 92 HDL Cholesterol 94 H Lipase 1676 H Venous Blood Potassium Urine Color Urine Clarity Urine pH Ur Specific [place] Urine Protein Urine Glucose (UA) Urine Ketones Urine Blood Urine Nitrate Urine Bilirubin Urine Urobilinogen Ur Leukocyte Esterase Urine RBC (Auto) Urine Microscopic WBC Ur Squamous Epith Cells - Imaging and Cardiology CT scan - abdomen Status: Image reviewed by me, Report reviewed by me Assessment & Plan (1) Acute alcoholic pancreatitis Assessment and Plan: Symptoms, labs, and imaging c/w acute pancreatitis. Ongoing alcohol use despite previous bouts of alcoholic pancreatitis. Vigorous IV hydration and adequate analgesia. Counselling for alcohol abstinence. Follow clinically for pancreatitis associated compli.cations Status: Acute
[2018-07-06] MEDS: Lactated Ringer's 1,000 ML IV SCH ×7 (03:20→20:45)
--- NOTE | 2018-07-06 07:08 | CP.PCM.PN ---
Objective - Vital Signs/Intake and Output Vital Signs (last 24 hours): Temp Pulse Resp BP Pulse Ox 98.6 F 82 20 130/84 97 07/05/18 23:48 07/05/18 23:48 07/05/18 23:48 07/05/18 23:48 07/05/18 23:48 - Medications Medications: Current Medications Lactated Ringer's (Lactated Ringer's) 1,000 mls @ 250 mls/hr IV .Q4H [facility] Last Admin: 07/06/18 03:45 Dose: Not Given Ketorolac Tromethamine (Toradol) 30 mg IVP Q6 PRN PRN Reason: Pain, severe (8-10) Last Admin: 07/06/18 04:45 Dose: 30 mg Ketorolac Tromethamine (Toradol) 15 mg IVP Q6 PRN PRN Reason: Pain, moderate (4-7) Last Admin: 07/05/18 14:42 Dose: 15 mg Ondansetron HCl (Zofran Inj) 4 mg IVP Q6 PRN PRN Reason: Nausea/Vomiting Pantoprazole Sodium (Protonix Inj) 40 mg IVP DAILY [facility] Last Admin: 07/05/18 10:01 Dose: 40 mg - Labs Labs: 07/04/18 21:25 07/05/18 05:31 PT 9.7 Seconds (9.8-13.1) L 07/04/18 23:00 INR 0.9 07/04/18 23:00 APTT 28.5 Seconds (25.6-37.1) 07/04/18 23:00
[2018-07-06 09:24] LABS: ALB/GLOB RATIO 1.1 (1.0-2.1); ALBUMIN 3.3 g/dL (3.5-5.0); ALT/SGPT 40 U/L (21-72); AST/SGOT 75 U/L (17-59); BLOOD UREA NITROGEN 2 mg/dl (9-20); CALCIUM 9.3 mg/dL (8.4-10.2); GFR NON-AFRICAN AMERICAN > 60; LIPASE 3224 U/L (23-300)
--- NOTE | 2018-07-06 09:36 | CP.PCM.PN ---
Subjective - Date & Time of Evaluation Date of Evaluation: 07/06/18 Time of Evaluation: 09:30 - Subjective Subjective: Patient seen and examined bedside . All chart and clinical data reviewed . Complaining of abdominal pain starting at epigastric area and radiating to the back, making it difficult fort him to lye down Tolerating diet with no nausea or vomiting No BM Hemodynamically stable, afebrile Liase trending up from 1600 -- 3224 Objective - Vital Signs/Intake and Output Vital Signs (last 24 hours): Temp Pulse Resp BP Pulse Ox 98.9 F 94 H 20 132/89 96 07/06/18 08:28 07/06/18 08:28 07/06/18 08:28 07/06/18 08:28 07/06/18 08:28 - Medications Medications: Current Medications Lactated Ringer's (Lactated Ringer's) 1,000 mls @ 250 mls/hr IV .Q4H [facility] Last Admin: 07/06/18 03:45 Dose: Not Given Ketorolac Tromethamine (Toradol) 30 mg IVP Q6 PRN PRN Reason: Pain, severe (8-10) Last Admin: 07/06/18 04:45 Dose: 30 mg Ketorolac Tromethamine (Toradol) 15 mg IVP Q6 PRN PRN Reason: Pain, moderate (4-7) Last Admin: 07/05/18 14:42 Dose: 15 mg Ondansetron HCl (Zofran Inj) 4 mg IVP Q6 PRN PRN Reason: Nausea/Vomiting Pantoprazole Sodium (Protonix Inj) 40 mg IVP DAILY [facility] Last Admin: 07/05/18 10:01 Dose: 40 mg - Labs Labs: 07/04/18 21:25 07/06/18 07:20 PT 9.7 Seconds (9.8-13.1) L 07/04/18 23:00 INR 0.9 07/04/18 23:00 APTT 28.5 Seconds (25.6-37.1) 07/04/18 23:00 - Constitutional Appears: Non-toxic, No Acute Distress - Head Exam Head Exam: ATRAUMATIC, NORMAL INSPECTION, NORMOCEPHALIC - Eye Exam Eye Exam: EOMI, Normal appearance, PERRL Pupil Exam: NORMAL ACCOMODATION - ENT Exam ENT Exam: Mucous Membranes Moist, Normal Exam - Neck Exam Neck Exam: Full ROM, Normal Inspection - Respiratory Exam Respiratory Exam: Clear to Ausculation Bilateral, NORMAL BREATHING PATTERN. absent: Rales, Rhonchi, Wheezes, Stridor - Cardiovascular Exam Cardiovascular Exam: REGULAR RHYTHM, RRR, +S1, +S2. absent: JVD - GI/Abdominal Exam GI & Abdominal Exam: Guarding (subjective), Soft, Tenderness (epigastric ), Hernia (umbilical ), Hyperactive Bowel Sounds - Rectal Exam Rectal Exam: Deferred - Extremities Exam Extremities Exam: Full ROM, Normal Capillary Refill, Normal Inspection - Back Exam Back Exam: NORMAL INSPECTION - Neurological Exam Neurological Exam: Alert, Awake, CN II-XII Intact, Oriented x3 - Psychiatric Exam Psychiatric exam: Normal Affect, Normal Mood - Skin Skin Exam: Dry, Intact, Normal Color, Warm Assessment and Plan - Assessment and Plan (Free Text) Assessment: 48 y/o male with PMH pancreatitis 1 year ago related to ETOh abuse presented to E with 5 days history opf abdominal pain . Patienty accepted to using ETOH . CT abdomen showed acute pancreatitis with no abscess , no necrosis Lipase elevated > 6000 1. Acute alcoholic pancreatitis Still with abdominal pain Lipase trending up to 3000 Continue IVF @ 250 ml/hr Pain management PPI Continue regular diet 2. ETOH use counselled on ETOH abuse 3.GI prophylaxis Start Protonix 4. DVT Prophylaxis SCD
[2018-07-06 16:05] VITALS: O2SAT 97
--- NOTE | 2018-07-07 01:14 | CP.PCM.PN ---
Subjective - Date & Time of Evaluation Date of Evaluation: 07/07/18 Time of Evaluation: 23:00 - Subjective Subjective: Still with back pain though gradually improving. Feels worst with caffeinated products and acidic foods. Objective - Vital Signs/Intake and Output Vital Signs (last 24 hours): Temp Pulse Resp BP Pulse Ox 98.6 F 65 18 135/85 97 07/07/18 00:20 07/07/18 00:20 07/07/18 00:20 07/07/18 00:20 07/07/18 00:20 - Medications Medications: Current Medications Lactated Ringer's (Lactated Ringer's) 1,000 mls @ 250 mls/hr IV .Q4H [facility] Last Admin: 07/06/18 20:45 Dose: 250 mls/hr Ketorolac Tromethamine (Toradol) 30 mg IVP Q6 PRN PRN Reason: Pain, severe (8-10) Last Admin: 07/06/18 19:02 Dose: 30 mg Ketorolac Tromethamine (Toradol) 15 mg IVP Q6 PRN PRN Reason: Pain, moderate (4-7) Last Admin: 07/05/18 14:42 Dose: 15 mg Ondansetron HCl (Zofran Inj) 4 mg IVP Q6 PRN PRN Reason: Nausea/Vomiting Pantoprazole Sodium (Protonix Inj) 40 mg IVP DAILY [facility] Last Admin: 07/06/18 10:16 Dose: 40 mg - Labs Labs: 07/04/18 21:25 07/06/18 07:20 PT 9.7 Seconds (9.8-13.1) L 07/04/18 23:00 INR 0.9 07/04/18 23:00 APTT 28.5 Seconds (25.6-37.1) 07/04/18 23:00 - Head Exam Head Exam: ATRAUMATIC - Eye Exam Eye Exam: Normal appearance - ENT Exam ENT Exam: Mucous Membranes Moist - Neck Exam Neck Exam: Full ROM - Respiratory Exam Respiratory Exam: Clear to Ausculation Bilateral - Cardiovascular Exam Cardiovascular Exam: REGULAR RHYTHM - GI/Abdominal Exam GI & Abdominal Exam: Soft. absent: Tenderness Assessment and Plan (1) Acute alcoholic pancreatitis Assessment & Plan: Lipase went up today though feels better clinically and remains afebrile. Will continue to monitor. Status: Acute
[2018-07-07] MEDS: Lactated Ringer's 1,000 ML IV SCH ×4 (01:25→12:09)
[2018-07-07 06:36] LABS: HEMOGLOBIN 12.5 g/dL (12.0-18.0); MEAN CELL VOLUME 91.8 fl (80.0-94.0); MEAN CORPUSCULAR HEMOGLOBIN 30.5 pg (27.0-31.0); MEAN CORPUSCULAR HGB CONC 33.2 g/dL (33.0-37.0); RBC 4.11 Mil/uL (4.40-5.90); RED CELL DISTRIBUTION WIDTH 15.3 % (11.5-14.5); WHITE BLOOD COUNT 5.2 K/uL (4.8-10.8)
[2018-07-07 06:57] LABS: ALB/GLOB RATIO 1.1 (1.0-2.1); ALBUMIN 3.5 g/dL (3.5-5.0); ALT/SGPT 51 U/L (21-72); AST/SGOT 76 U/L (17-59); BLOOD UREA NITROGEN 2 mg/dl (9-20); CALCIUM 9.8 mg/dL (8.4-10.2); GFR NON-AFRICAN AMERICAN > 60; LIPASE 1071 U/L (23-300)
--- NOTE | 2018-07-07 07:51 | CP.PCM.DIS ---
Provider - Provider Date of Admission: 07/04/18 22:44 Attending physician: Alli Win Consults: 07/04/18 22:44 Gastroenterology Consult Stat Comment: Consulting Provider: Adrián Dougherty Consulting Physician: Adrián Dougherty Reason for Consult: pancreatitis Hospital Course - Lab Results Lab Results: Most Recent Lab Values WBC 5.2 K/uL (4.8-10.8) 07/07/18 05:20 RBC 4.11 Mil/uL (4.40-5.90) L 07/07/18 05:20 Hgb 12.5 g/dL (12.0-18.0) 07/07/18 05:20 Hct 37.7 % (35.0-51.0) 07/07/18 05:20 MCV 91.8 fl (80.0-94.0) 07/07/18 05:20 MCH 30.5 pg (27.0-31.0) 07/07/18 05:20 MCHC 33.2 g/dL (33.0-37.0) 07/07/18 05:20 RDW 15.3 % (11.5-14.5) H 07/07/18 05:20 Plt Count 234 K/uL (130-400) 07/07/18 05:20 MPV 7.2 fl (7.2-11.7) 07/04/18 21:25 Neut % (Auto) 70.8 % (50.0-75.0) 07/04/18 21:25 Lymph % (Auto) 20.0 % (20.0-40.0) 07/04/18 21:25 [place] % (Auto) 6.8 % (0.0-10.0) 07/04/18 21:25 Eos % (Auto) 2.1 % (0.0-4.0) 07/04/18 21:25 Baso % (Auto) 0.3 % (0.0-2.0) 07/04/18 21:25 Neut # (Auto) 4.3 K/uL (1.8-7.0) 07/04/18 21:25 Lymph # (Auto) 1.2 K/uL (1.0-4.3) 07/04/18 21:25 [place] # (Auto) 0.4 K/uL (0.0-0.8) 07/04/18 21:25 Eos # (Auto) 0.1 K/uL (0.0-0.7) 07/04/18 21:25 Baso # (Auto) 0.0 K/uL (0.0-0.2) 07/04/18 21:25 PT 9.7 Seconds (9.8-13.1) L 07/04/18 23:00 INR 0.9 07/04/18 23:00 APTT 28.5 Seconds (25.6-37.1) 07/04/18 23:00 pO2 19 mm/Hg (30-55) L 07/04/18 21:32 VBG pH 7.37 (7.32-7.43) 07/04/18 21:32 VBG pCO2 57 mmHg (40-60) 07/04/18 21:32 VBG HCO3 27.7 mmol/L 07/04/18 21:32 VBG Total CO2 34.7 mmol/L (22-28) H 07/04/18 21:32 VBG O2 Sat (Calc) 31.5 % (40-65) L 07/04/18 21:32 VBG Base Excess 6.0 mmol/L (0.0-2.0) H 07/04/18 21:32 VBG Potassium 4.2 mmol/L (3.6-5.2) 07/04/18 21:32 Sodium 132.0 mmol/L (132-148) 07/04/18 21:32 Chloride 98.0 mmol/L (98-107) 07/04/18 21:32 Glucose 122 mg/dL (75-110) H 07/04/18 21:32 Lactate 1.7 mmol/L (0.7-2.1) 07/04/18 21:32 FiO2 21.0 % 07/04/18 21:32 Sodium 137 mmol/l (132-148) 07/07/18 05:20 Potassium 3.8 MMOL/L (3.6-5.0) 07/07/18 05:20 Chloride 101 mmol/L (98-107) 07/07/18 05:20 Carbon Dioxide 27 mmol/L (22-30) 07/07/18 05:20 Anion Gap 13 (10-20) 07/07/18 05:20 BUN 2 mg/dl (9-20) L 07/07/18 05:20 Creatinine 0.8 mg/dl (0.8-1.5) 07/07/18 05:20 Est GFR ( Amer) > 60 07/07/18 05:20 Est GFR (Non-Af Amer) > 60 07/07/18 05:20 Random Glucose 84 mg/dL (75-110) 07/07/18 05:20 Calcium 9.8 mg/dL (8.4-10.2) 07/07/18 05:20 Phosphorus 3.1 mg/dl (2.5-4.5) 07/05/18 05:31 Magnesium 1.9 MG/DL (1.6-2.3) 07/05/18 05:31 Total Bilirubin 0.5 mg/dl (0.2-1.3) 07/07/18 05:20 AST 76 U/L (17-59) H 07/07/18 05:20 ALT 51 U/L (21-72) 07/07/18 05:20 Alkaline Phosphatase 61 U/L (38-126) 07/07/18 05:20 Total Protein 6.8 G/DL (6.3-8.2) 07/07/18 05:20 Albumin 3.5 g/dL (3.5-5.0) 07/07/18 05:20 Globulin 3.2 gm/dL (2.2-3.9) 07/07/18 05:20 Albumin/Globulin Ratio 1.1 (1.0-2.1) 07/07/18 05:20 Triglycerides 51 mg/DL (0-149) D 07/05/18 10:10 Cholesterol 215 mg/dL (0-199) H 07/05/18 10:10 LDL Cholesterol Direct 92 mg/dL (0-129) 07/05/18 10:10 HDL Cholesterol 94 MG/DL (30-70) H 07/05/18 10:10 Lipase 1071 U/L (23-300) H 07/07/18 05:20 Venous Blood Potassium 4.2 mmol/L (3.6-5.2) 07/04/18 21:32 Urine Color Straw (YELLOW) 07/05/18 02:10 Urine Clarity Clear (Clear) 07/05/18 02:10 Urine pH 9.0 (5.0-8.0) 07/05/18 02:10 Ur Specific [place] 1.036 (1.003-1.030) H 07/05/18 02:10 Urine Protein Negative mg/dL (NEGATIVE) 07/05/18 02:10 Urine Glucose (UA) Neg mg/dL (NEGATIVE) 07/05/18 02:10 Urine Ketones Trace mg/dL (NEGATIVE) 07/05/18 02:10 Urine Blood Negative (NEGATIVE) 07/05/18 02:10 Urine Nitrate Negative (NEGATIVE) 07/05/18 02:10 Urine Bilirubin Negative (NEGATIVE) 07/05/18 02:10 Urine Urobilinogen 0.2-1.0 mg/dL (0.2-1.0) 07/05/18 02:10 Ur Leukocyte Esterase Neg [place]/uL (Negative) 07/05/18 02:10 Urine RBC (Auto) 1 /hpf (0-3) 07/05/18 02:10 Urine Microscopic WBC 1 /hpf (0-5) 07/05/18 02:10 Ur Squamous Epith Cells 1 /hpf (0-5) 07/05/18 02:10 Discharge Exam - Head Exam Head Exam: ATRAUMATIC Discharge Plan - Follow Up Plan Condition: FAIR Disposition: HOME/ ROUTINE
[2018-07-07 07:54] VITALS: BP 137/88; PULSE 86; RESP 20; TEMP 99.1
--- NOTE | 2018-07-07 10:38 | CP.PCM.DIS ---
Provider - Provider Date of Admission: 07/04/18 22:44 Attending physician: Alli Win Primary care physician: none Consults: 07/04/18 22:44 Gastroenterology Consult Stat Comment: Consulting Provider: Adrián Dougherty Consulting Physician: Adrián Dougherty Reason for Consult: pancreatitis Time Spent in preparation of Discharge (in minutes): 20 Hospital Course - Lab Results Lab Results: Most Recent Lab Values WBC 5.2 K/uL (4.8-10.8) 07/07/18 05:20 RBC 4.11 Mil/uL (4.40-5.90) L 07/07/18 05:20 Hgb 12.5 g/dL (12.0-18.0) 07/07/18 05:20 Hct 37.7 % (35.0-51.0) 07/07/18 05:20 MCV 91.8 fl (80.0-94.0) 07/07/18 05:20 MCH 30.5 pg (27.0-31.0) 07/07/18 05:20 MCHC 33.2 g/dL (33.0-37.0) 07/07/18 05:20 RDW 15.3 % (11.5-14.5) H 07/07/18 05:20 Plt Count 234 K/uL (130-400) 07/07/18 05:20 MPV 7.2 fl (7.2-11.7) 07/04/18 21:25 Neut % (Auto) 70.8 % (50.0-75.0) 07/04/18 21:25 Lymph % (Auto) 20.0 % (20.0-40.0) 07/04/18 21:25 [place] % (Auto) 6.8 % (0.0-10.0) 07/04/18 21:25 Eos % (Auto) 2.1 % (0.0-4.0) 07/04/18 21:25 Baso % (Auto) 0.3 % (0.0-2.0) 07/04/18 21:25 Neut # (Auto) 4.3 K/uL (1.8-7.0) 07/04/18 21:25 Lymph # (Auto) 1.2 K/uL (1.0-4.3) 07/04/18 21:25 [place] # (Auto) 0.4 K/uL (0.0-0.8) 07/04/18 21:25 Eos # (Auto) 0.1 K/uL (0.0-0.7) 07/04/18 21:25 Baso # (Auto) 0.0 K/uL (0.0-0.2) 07/04/18 21:25 PT 9.7 Seconds (9.8-13.1) L 07/04/18 23:00 INR 0.9 07/04/18 23:00 APTT 28.5 Seconds (25.6-37.1) 07/04/18 23:00 pO2 19 mm/Hg (30-55) L 07/04/18 21:32 VBG pH 7.37 (7.32-7.43) 07/04/18 21:32 VBG pCO2 57 mmHg (40-60) 07/04/18 21:32 VBG HCO3 27.7 mmol/L 07/04/18 21:32 VBG Total CO2 34.7 mmol/L (22-28) H 07/04/18 21:32 VBG O2 Sat (Calc) 31.5 % (40-65) L 07/04/18 21:32 VBG Base Excess 6.0 mmol/L (0.0-2.0) H 07/04/18 21:32 VBG Potassium 4.2 mmol/L (3.6-5.2) 07/04/18 21:32 Sodium 132.0 mmol/L (132-148) 07/04/18 21:32 Chloride 98.0 mmol/L (98-107) 07/04/18 21:32 Glucose 122 mg/dL (75-110) H 07/04/18 21:32 Lactate 1.7 mmol/L (0.7-2.1) 07/04/18 21:32 FiO2 21.0 % 07/04/18 21:32 Sodium 137 mmol/l (132-148) 07/07/18 05:20 Potassium 3.8 MMOL/L (3.6-5.0) 07/07/18 05:20 Chloride 101 mmol/L (98-107) 07/07/18 05:20 Carbon Dioxide 27 mmol/L (22-30) 07/07/18 05:20 Anion Gap 13 (10-20) 07/07/18 05:20 BUN 2 mg/dl (9-20) L 07/07/18 05:20 Creatinine 0.8 mg/dl (0.8-1.5) 07/07/18 05:20 Est GFR ( Amer) > 60 07/07/18 05:20 Est GFR (Non-Af Amer) > 60 07/07/18 05:20 Random Glucose 84 mg/dL (75-110) 07/07/18 05:20 Calcium 9.8 mg/dL (8.4-10.2) 07/07/18 05:20 Phosphorus 3.1 mg/dl (2.5-4.5) 07/05/18 05:31 Magnesium 1.9 MG/DL (1.6-2.3) 07/05/18 05:31 Total Bilirubin 0.5 mg/dl (0.2-1.3) 07/07/18 05:20 AST 76 U/L (17-59) H 07/07/18 05:20 ALT 51 U/L (21-72) 07/07/18 05:20 Alkaline Phosphatase 61 U/L (38-126) 07/07/18 05:20 Total Protein 6.8 G/DL (6.3-8.2) 07/07/18 05:20 Albumin 3.5 g/dL (3.5-5.0) 07/07/18 05:20 Globulin 3.2 gm/dL (2.2-3.9) 07/07/18 05:20 Albumin/Globulin Ratio 1.1 (1.0-2.1) 07/07/18 05:20 Triglycerides 51 mg/DL (0-149) D 07/05/18 10:10 Cholesterol 215 mg/dL (0-199) H 07/05/18 10:10 LDL Cholesterol Direct 92 mg/dL (0-129) 07/05/18 10:10 HDL Cholesterol 94 MG/DL (30-70) H 07/05/18 10:10 Lipase 1071 U/L (23-300) H 07/07/18 05:20 Venous Blood Potassium 4.2 mmol/L (3.6-5.2) 07/04/18 21:32 Urine Color Straw (YELLOW) 07/05/18 02:10 Urine Clarity Clear (Clear) 07/05/18 02:10 Urine pH 9.0 (5.0-8.0) 07/05/18 02:10 Ur Specific [place] 1.036 (1.003-1.030) H 07/05/18 02:10 Urine Protein Negative mg/dL (NEGATIVE) 07/05/18 02:10 Urine Glucose (UA) Neg mg/dL (NEGATIVE) 07/05/18 02:10 Urine Ketones Trace mg/dL (NEGATIVE) 07/05/18 02:10 Urine Blood Negative (NEGATIVE) 07/05/18 02:10 Urine Nitrate Negative (NEGATIVE) 07/05/18 02:10 Urine Bilirubin Negative (NEGATIVE) 07/05/18 02:10 Urine Urobilinogen 0.2-1.0 mg/dL (0.2-1.0) 07/05/18 02:10 Ur Leukocyte Esterase Neg [place]/uL (Negative) 07/05/18 02:10 Urine RBC (Auto) 1 /hpf (0-3) 07/05/18 02:10 Urine Microscopic WBC 1 /hpf (0-5) 07/05/18 02:10 Ur Squamous Epith Cells 1 /hpf (0-5) 07/05/18 02:10 - Hospital Course Hospital Course: 48 y/o male with PMH pancreatitis 1 year ago related to ETOH abuse presented to ER with 5 days history of abdominal pain . Patient accepted to using ETOH .CT abdomen showed acute pancreatitis with no abscess , no necrosis Lipase was elevated > 6000 so patient admitted to med/surg , started on IVF , pain medication PRN and surgery consulted. Patient clinically improved . Lipase trended down top 1000 , tolerating diet , having regular BM and voidingfreely Will discharge patient home on Protonix PO Counselled patient on diet and ETOH abuse Follow upw [facility] 1. Acute alcoholic pancreatitis 2. ETOH use counselled on ETOH abuse 3.GI prophylaxis Started Protonix Discharge Exam - Head Exam Head Exam: ATRAUMATIC, NORMOCEPHALIC - Eye Exam Eye Exam: EOMI, Normal appearance, PERRL Pupil Exam: NORMAL ACCOMODATION - ENT Exam ENT Exam: Mucous Membranes Moist, Normal Exam - Neck Exam Neck exam: Full Rom, Normal Inspection - Respiratory Exam Respiratory Exam: Clear to PA & Lateral, NORMAL BREATHING PATTERN. absent: Rhonchi - Cardiovascular Exam Cardiovascular Exam: REGULAR RHYTHM, RRR, +S1, +S2. absent: JVD - GI/Abdominal Exam GI & Abdominal Exam: Normal Bowel Sounds, Soft. absent: Guarding, Rebound, Tenderness - Rectal Exam Rectal Exam: Deferred - Extremities Exam Extremities exam: normal capillary refill, normal inspection, pedal pulses present - Back Exam Back exam: NORMAL INSPECTION - Neurological Exam Neurological exam: Alert, CN II-XII Intact, Oriented x3, Reflexes Normal - Psychiatric Exam Psychiatric exam: Normal Affect, Normal Mood - Skin Skin Exam: Dry, Intact, Normal Color, Warm Discharge Plan - Follow Up Plan Condition: STABLE Disposition: HOME/ ROUTINE Patient education suggested?: Yes Instructions: Pancreatitis (DC) Referrals: [facility] [place] [Outside]
== END 2018-07-07 14:20 | disposition home or self-care (01) | DRG 282 ==
LOC: H.ER 20:12 → H.ERHOLD 22:44 → H.MEDSURG1 07-05 02:59
PROVIDERS: ADMIT Internal Medicine; ATTEND Internal Medicine
DX: K85.20 Alcohol induced acute pancreatitis without necrosis or infection (principal); K76.0 Fatty (change of) liver, not elsewhere classified; F10.10 Alcohol abuse, uncomplicated; F41.9 Anxiety disorder, unspecified; K20.9 Esophagitis, unspecified; R07.9 Chest pain, unspecified